=== PATIENT | male | born 1960 | race African-American/Black ===

== ENCOUNTER 2016-09-08 00:26 | Emergency (ER) | payer OTHER ==
[~2016-09-08] VITALS: Ht 188 cm; Wt 86.2 kg
[~2016-09-08 00:26] MED LIST: ALPRAZOLAM0.25 MG ORAL; ATIVAN0.5 MG ORAL; CARDIZEM CD360 MG PO; COUMADIN5 M1 IV; DIGOXIN125 MCG ORAL; LANOXIN250 MCG ORAL; MIRTAZAPINE15 M3 ORAL; NORCO 5-325 TA1 EACH ORAL; SEROQUEL100 MG ORAL; TOPROL XL100 MG ORAL; VICODIN 5-3001 EACH ORAL; XANAX0.25 MG ORAL; XANAX1 MG ORAL; ZYPREXA5 MG ORAL; [UNRECOGNIZED DRUG - OTHER]
[2016-09-08 00:30] VITALS: BP 150/84
[2016-09-08] MEDS ORDERED: ASPIRIN81 MG ORAL (00:39)
[2016-09-08] MEDS ORDERED: ALPRAZOLAM1 MG ORAL (00:39)
--- NOTE | 2016-09-08 00:44 | Emergency Room Report ---
History of Present Illness General Chief Complaint: Chest Pain Source: Patient Present Illness HPI 56YOM presents with left sided 9/10, non radiating chest pain. No assoc SOB, sweating, nausea/vomiting. Also c/o ankle pain s/p fx 1 year ago and recent hardware removal. Has norco at home but ran out. Requesting IV dilaudid or PO norco here. Per review of EMR, patient has multiple visits here for similar complaints of lower extremity pain and chest pain. As of recently as a few months ago, was ruled for [place] with negative troponins and EKG. ECHO showed normal EF 50-55%. No significant valve lesions on Doppler. Stress nuclear w/ inferior, fixed perfusion defect, suggestive of artifact. .Was advised by Cardiology to continue metoprolol, dig and Coumadin. Allergies: Coded Allergies: No Known Allergies (Verified , 11/08/11) Patient History Past Medical History: HTN Past Surgical History: other - previous ankle surgery Pertinent Family History: none Social History: Denies: alcohol use, drug use, smoking Immunizations: UTD Reviewed Nursing Documentation: PMH: Agreed, PSxH: Agreed Nursing Documentation-PMH Hx Cardiac Problems: Yes - Afib Hx Hypertension: Yes Hx Pacemaker: No Hx Asthma: No Hx COPD: No Hx Diabetes: No Hx Cancer: No Hx Gastrointestinal Problems: No Hx Dialysis: No History Of Psychiatric Problem: Yes - anxiety Hx Neurological Problems: No Hx Cerebrovascular Accident: No Hx Seizures: Yes Review of Systems All Other Systems: negative except mentioned in HPI Physical Exam Vital Signs Date Time Temp Pulse Resp B/P Pulse Ox O2 Delivery O2 Flow Rate FiO2 09/08/16 00:03 96.4 95 16 150/86 99 Room Air Sp02 EP Interpretation: reviewed, normal General Appearance: normal inspection, well appearing, no apparent distress, alert Head: atraumatic ENT: normal ENT inspection, hearing grossly normal, normal voice Neck: normal inspection, full range of motion, supple, no bony tend Respiratory: normal inspection, lungs clear, normal breath sounds, no respiratory distress, no retraction, no wheezing Cardiovascular #1: regular rate, rhythm, no edema Gastrointestinal: normal inspection, normal bowel sounds, non tender, soft, no guarding, no hernia Genitourinary: no CVA tenderness Musculoskeletal: normal inspection, back normal, normal range of motion, Brittany' s Sign negative Neurologic: normal inspection, alert, oriented x3, responsive, 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 VSS. Afebrile ECG shows known Afib, no RVR. Normotensive Has had extensive lab/ECHO/STRESS testing done here previously and it was unremarkable. Patient is likely narcotic seeking. There were specific requests for IV or PO nacrotics I gave IM toradol and PO T#3 for analgesia Patient requesting transfer to [facility] - was informed we do not do that Patient angrily left ER. Refused to sign DC papers. Didnt take Rx. EKG Diagnostic Results Rate: other - Atrial fib ST Segments: no acute changes ASA given to the pt in ED: No Chest X-Ray Diagnostic Results EP Interpretation: Yes Findings: no consolidation, no effusion, no pneumothorax, no acute cardiopulmonary disease Number of Views: 1 Last Vital Signs Date Time Temp Pulse Resp B/P Pulse Ox O2 Delivery O2 Flow Rate FiO2 09/08/16 00:03 96.4 95 16 150/86 99 Room Air Status: improved Disposition: HOME, SELF-CARE Scripts Acetaminophen With Codeine (T#3) (TYLENOL #3 TAB*) Y Tab 1 TAB ORAL Q8H Y for For Pain, #30 TAB Prov: CONNOR MOMIN M.D. 09/08/16 CONNOR MOMIN M.D. Sep 08, 2016 00:44
[2016-09-08] MEDS ORDERED: Tylenol #3 tab (300mg/30mg) ORAL ONE (01:00)
[2016-09-08] MEDS ORDERED: Ketorolac 60mg Inj IM ONE (01:00)
[2016-09-08] MEDS ORDERED: ACETAMINOPHEN-1 EAC1 ORAL (01:18)
[2016-09-08 01:36] VITALS: BP 143/80
--- NOTE | 2016-09-11 10:33 | Diagnostic Imaging Report ---
Indications: Chest pain Technique: Portable AP chest Findings: Comparison: None Cardiac silhouette remains partially obscured.. Pulmonary vasculature remains within normal limits. Inspiratory effort remains suboptimal. Visualized portions of lungs and pleura remain clear. IMPRESSION: No evidence of acute cardiopulmonary disease, limited as described, unchanged
== END 2016-09-08 01:38 | disposition home or self-care (01) ==
LOC: EDBD 00:26 → EMR 00:33
DX: R07.9 Chest pain, unspecified (principal); M25.579 Pain in unspecified ankle and joints of unspecified foot; G89.29 Other chronic pain; Z76.5 Malingerer [conscious simulation]; I10 Essential (primary) hypertension; F41.9 Anxiety disorder, unspecified; I48.91 Unspecified atrial fibrillation; Z79.01 Long term (current) use of anticoagulants
CPT/HCPCS: 71010; 93005; 96372; 99283

== ENCOUNTER 2017-09-30 12:06 | Inpatient (IN) | payer OTHER ==
[~2017-09-30] VITALS: Ht 172.7 cm; Wt 72.6 kg
[~2017-09-30 12:06] MED LIST changes: +ACETAMINOPHEN-1 EAC1 ORAL; +ALPRAZOLAM1 MG ORAL; +ASPIRIN81 MG ORAL; +Sodium Chloride 500ML 500 ML IV ONE
[2017-09-30] MEDS ORDERED: dilTIAZem HCl 25mg/5ml Inj IVP ONE ×2 (12:15→15:00)
[2017-09-30] MEDS ORDERED: Morphine Sulfate 4mg/ml Inj IVP ONE ×2 (12:15→15:00)
[2017-09-30] MEDS ORDERED: ATENOLOL25 MG ORAL (12:46)
[2017-09-30 12:54] LABS: BASOPHILS % (AUTO) 1.1 % (0.0-2.0); EOSINOPHILS % (AUTO) 0.1 % (0.0-3.0); HEMATOCRIT 46.1 % (42.0-52.0); HEMOGLOBIN 15.2 G/DL (14.2-18.0); LYMPHOCYTES % (AUTO) 18.2 % (20.0-45.0); MEAN CORPUSCULAR VOLUME 93 FL (80-99); MONOCYTES % (AUTO) 4.3 % (1.0-10.0); NEUTROPHILS % (AUTO) 76.3 % (45.0-75.0); PLATELET COUNT 422 K/UL (150-450); RED BLOOD COUNT 4.93 M/UL (4.70-6.10); RED CELL DISTRIBUTION WIDTH 12.5 % (11.6-14.8); WHITE BLOOD COUNT 13.6 K/UL (4.8-10.8)
[2017-09-30 13:09] VITALS: BP 148/76
[2017-09-30 13:26] LABS: ANION GAP 15 mmol/L (5-15); BLOOD UREA NITROGEN 14 mg/dL (7-18); CALCIUM 9.7 MG/DL (8.5-10.1); CARBON DIOXIDE 25 MMOL/L (21-32); CHLORIDE 104 MMOL/L (98-107); POTASSIUM 3.2 MMOL/L (3.5-5.1); SODIUM 144 MMOL/L (136-145)
[2017-09-30 13:39] LABS: ALANINE AMINOTRANSFERASE 11 U/L (12-78); ALBUMIN 4.4 G/DL (3.4-5.0); ALBUMIN/GLOBULIN RATIO 1.2 (1.0-2.7); ALKALINE PHOSPHATASE 102 U/L (46-116); ASPARTATE AMINO TRANSFERASE 15 U/L (15-37); BILIRUBIN,DIRECT 0.3 MG/DL (0.0-0.3); BILIRUBIN,TOTAL 1.3 MG/DL (0.2-1.0); CKMB 2.5 NG/ML (0.0-3.6); CREATINE KINASE 593 U/L (26-308)
--- NOTE | 2017-09-30 14:08 | Emergency Room Report ---
History of Present Illness General Chief Complaint: Chest Pain Source: Patient Present Illness HPI Patient presents with complaints of midsternal chest pain Ongoing for the past one day Denies any change of position or exertion Denies any vomiting or diarrhea Patient has had increased cough and mild congestion Pain is 4/10 midsternal heaviness Patient reports history of irregular heart rate takes atenolol Denies any pleurisy or calf pain Allergies: Coded Allergies: No Known Allergies (Verified , 11/08/11) Patient History Past Medical History: see triage record Pertinent Family History: none Reviewed Nursing Documentation: PMH: Agreed, PSxH: Agreed Nursing Documentation-PMH Past Medical History: No History, Except For Hx Cardiac Problems: Yes - [place] Hx Hypertension: Yes Hx Pacemaker: No Hx Asthma: No Hx COPD: No Hx Diabetes: No Hx Cancer: No Hx Gastrointestinal Problems: No Hx Dialysis: No Hx Neurological Problems: No Hx Cerebrovascular Accident: Yes Hx Seizures: Yes Review of Systems All Other Systems: negative except mentioned in HPI Physical Exam Vital Signs Date Time Temp Pulse Resp B/P (MAP) Pulse Ox O2 Delivery O2 Flow Rate FiO2 09/30/17 11:52 98.1 140 18 144/88 98 Room Air Sp02 EP Interpretation: reviewed, normal General Appearance: well appearing, no apparent distress Head: normocephalic, atraumatic Eyes: bilateral eye PERRL, bilateral eye EOMI ENT: hearing grossly normal, normal pharynx, TMs + canals normal, uvula midline Neck: full range of motion, supple, no meningismus, no bony tend Respiratory: lungs clear, normal breath sounds, no rhonchi, no respiratory distress, no retraction, no accessory muscle use Cardiovascular #1: no edema, no gallop, no JVD, no murmur, tachycardia, irregularly irregular Gastrointestinal: normal bowel sounds, non tender, soft, no mass, no organomegaly, non-distended, no guarding, no hernia, no pulsatile mass, no rebound Genitourinary: no CVA tenderness Musculoskeletal: normal inspection Neurologic: oriented x3, responsive, singing waiter or waitress III-XII nml as tested, motor strength/ tone normal, sensory intact Psychiatric: mood/affect normal Skin: normal color, no rash, warm/dry, palpation normal Lymphatic: normal inspection, no adenopathy Medical Decision Making Diagnostic Impression: Primary Impression: ACS (acute coronary syndrome) Additional Impression: Atrial fibrillation ER Course Patient is a fairly complex patient with multiple differential to consideration including but not limited to cardiac cardiopulmonary and vascular emergencies Patient's total CK is mildly elevated X-ray and other troponin are otherwise negative Patient received pain medication aspirin has done better at this time given the comorbidities and clinical history admitted for further care Labs Test 09/30/17 12:30 White Blood Count 13.6 K/UL (4.8-10.8) Red Blood Count 4.93 M/UL (4.70-6.10) Hemoglobin 15.2 G/DL (14.2-18.0) Hematocrit 46.1 % (42.0-52.0) Mean Corpuscular Volume 93 FL (80-99) Mean Corpuscular Hemoglobin 30.9 PG (27.0-31.0) Mean Corpuscular Hemoglobin Concent 33.1 G/DL (32.0-36.0) Red Cell Distribution Width 12.5 % (11.6-14.8) Platelet Count 422 K/UL (150-450) Mean Platelet Volume 5.6 FL (6.5-10.1) Neutrophils (%) (Auto) 76.3 % (45.0-75.0) Lymphocytes (%) (Auto) 18.2 % (20.0-45.0) Monocytes (%) (Auto) 4.3 % (1.0-10.0) Eosinophils (%) (Auto) 0.1 % (0.0-3.0) Basophils (%) (Auto) 1.1 % (0.0-2.0) Sodium Level 144 MMOL/L (136-145) Potassium Level 3.2 MMOL/L (3.5-5.1) Chloride Level 104 MMOL/L (98-107) Carbon Dioxide Level 25 MMOL/L (21-32) Anion Gap 15 mmol/L (5-15) Blood Urea Nitrogen 14 mg/dL (7-18) Creatinine 1.0 MG/DL (0.55-1.30) Estimat Glomerular Filtration Rate > 60 mL/min (>60) Glucose Level 94 MG/DL (74-106) Calcium Level 9.7 MG/DL (8.5-10.1) Total Bilirubin 1.3 MG/DL (0.2-1.0) Direct Bilirubin 0.3 MG/DL (0.0-0.3) Aspartate Amino Transf (AST/SGOT) 15 U/L (15-37) Alanine Aminotransferase (ALT/SGPT) 11 U/L (12-78) Alkaline Phosphatase 102 U/L (46-116) Total Creatine Kinase 593 U/L (26-308) Creatine Kinase MB 2.5 NG/ML (0.0-3.6) Creatine Kinase MB Relative Index 0.4 Troponin I 0.000 ng/mL (0.000-0.056) Pro-B-Type Natriuretic Peptide 346 pg/mL (0-125) Total Protein 8.1 G/DL (6.4-8.2) Albumin 4.4 G/DL (3.4-5.0) Globulin 3.7 g/dL Albumin/Globulin Ratio 1.2 (1.0-2.7) Lipase 196 U/L (73-393) EKG Diagnostic Results Rate: tachycardiac Rhythm: other - A. fib ST Segments: other - Nonspecific ST T-wave changes Rhythm Strip Diag. Results EP Interpretation: yes Rate: 112 Rhythm: no PVC's, no ectopy, other - atrial fib Chest X-Ray Diagnostic Results Chest X-Ray Diagnostic Results : Chest X-Ray Ordered: Yes # of Views/Limited/Complete: 1 View Indication: Chest Pain EP Interpretation: Yes Interpretation: no consolidation, no effusion, no pneumothorax, other - cardiomegaly LLL hazziness Impression: No acute disease Electronically Signed by: Karolina Zelaya DO Last Vital Signs Date Time Temp Pulse Resp B/P (MAP) Pulse Ox O2 Delivery O2 Flow Rate FiO2 09/30/17 13:51 98.0 09/30/17 13:09 128 18 148/76 100 Room Air Status: improved Disposition: ADMITTED INPATIENT Condition: Serious Referrals: NON PHYSICIAN (PCP) KAROLINA ZELAYA D.O. Sep 30, 2017 14:08
[2017-09-30 16:00] VITALS: BP 150/106
--- NOTE | 2017-09-30 16:27 | Cardiology Progress Note ---
Assessment/Plan Assessment/Plan [id number] Objective Last 24 Hour Vital Signs Date Time Temp Pulse Resp B/P (MAP) Pulse Ox O2 Delivery O2 Flow Rate FiO2 09/30/17 15:51 121 18 09/30/17 15:51 118/77 09/30/17 15:13 152 103/89 09/30/17 13:51 98.0 09/30/17 13:09 98.0 128 18 148/76 100 Room Air 09/30/17 12:15 121 136/106 09/30/17 11:52 98.1 140 18 144/88 98 Room Air Laboratory Tests Test 09/30/17 12:30 White Blood Count 13.6 K/UL (4.8-10.8) H Red Blood Count 4.93 M/UL (4.70-6.10) Hemoglobin 15.2 G/DL (14.2-18.0) Hematocrit 46.1 % (42.0-52.0) Mean Corpuscular Volume 93 FL (80-99) Mean Corpuscular Hemoglobin 30.9 PG (27.0-31.0) Mean Corpuscular Hemoglobin Concent 33.1 G/DL (32.0-36.0) Red Cell Distribution Width 12.5 % (11.6-14.8) Platelet Count 422 K/UL (150-450) Mean Platelet Volume 5.6 FL (6.5-10.1) L Neutrophils (%) (Auto) 76.3 % (45.0-75.0) H Lymphocytes (%) (Auto) 18.2 % (20.0-45.0) L Monocytes (%) (Auto) 4.3 % (1.0-10.0) Eosinophils (%) (Auto) 0.1 % (0.0-3.0) Basophils (%) (Auto) 1.1 % (0.0-2.0) Sodium Level 144 MMOL/L (136-145) Potassium Level 3.2 MMOL/L (3.5-5.1) L Chloride Level 104 MMOL/L (98-107) Carbon Dioxide Level 25 MMOL/L (21-32) Anion Gap 15 mmol/L (5-15) Blood Urea Nitrogen 14 mg/dL (7-18) Creatinine 1.0 MG/DL (0.55-1.30) Estimat Glomerular Filtration Rate > 60 mL/min (>60) Glucose Level 94 MG/DL (74-106) Calcium Level 9.7 MG/DL (8.5-10.1) Total Bilirubin 1.3 MG/DL (0.2-1.0) H Direct Bilirubin 0.3 MG/DL (0.0-0.3) Aspartate Amino Transf (AST/SGOT) 15 U/L (15-37) Alanine Aminotransferase (ALT/SGPT) 11 U/L (12-78) L Alkaline Phosphatase 102 U/L (46-116) Total Creatine Kinase 593 U/L (26-308) H Creatine Kinase MB 2.5 NG/ML (0.0-3.6) Creatine Kinase MB Relative Index 0.4 Troponin I 0.000 ng/mL (0.000-0.056) Pro-B-Type Natriuretic Peptide 346 pg/mL (0-125) H Total Protein 8.1 G/DL (6.4-8.2) Albumin 4.4 G/DL (3.4-5.0) Globulin 3.7 g/dL Albumin/Globulin Ratio 1.2 (1.0-2.7) Lipase 196 U/L (73-393) GIAN BOYD Sep 30, 2017 16:27
[2017-09-30] MEDS ORDERED: Metoprolol 5mg/5ml Inj IVP PRN (16:30)
[2017-09-30] MEDS: dilTIAZem HCl 60mg tab ORAL SCH ×2 (17:53→22:09)
--- NOTE | 2017-09-30 19:46 | History and Physical ---
History of Present Illness General Date patient seen: Sep 30, 2017 Reason for Hospitalization: Chest Pain Present Illness HPI 57 year old male with hx of A-fib, psychosis presented to ER with complaints of midsternal chest pain. Pt was in rapid afib and is admitted to telemetry. Allergies: Coded Allergies: No Known Allergies (Verified , 11/08/11) Medication History Scheduled Alprazolam* (Xanax*), 2 MG ORAL TID, (Reported) Aspirin* (Aspirin*), 81 MG ORAL DAILY, (Reported) Atenolol* (Tenormin*), 25 MG ORAL BID, (Reported) Digoxin* (Digoxin*), 125 MCG ORAL DAILY, (Reported) Diltiazem Hcl (Cardizem Cd), 360 MG PO DAILY Lorazepam* (Ativan*), 0.5 MG ORAL THREE TIMES A DAY Metoprolol Succinate* (Toprol Xl*), 100 MG ORAL DAILY Mirtazapine* (Mirtazapine*), 7.5 MG ORAL BEDTIME Olanzapine* (Zyprexa*), 10 MG ORAL BEDTIME Quetiapine Fumarate* (Seroquel*), 50 MG ORAL Q8HR Warfarin Sod (Coumadin), 2 MG IV DAILY Scheduled PRN Acetaminophen With Codeine (T#3) (Tylenol #3 Tab*), 1 TAB ORAL Q8H PRN for For Pain Alprazolam* (Xanax*), 0.25 MG ORAL TID PRN for For Anxiety Alprazolam* (Xanax*), 1 TAB ORAL TID PRN for For Anxiety Hydrocodone Bit/Acetaminophen 5-325* (Henderson 5-325*), 1 TAB ORAL Q6H PRN for For Pain Hydrocodone Bit/Acetaminophen 5-325* (Henderson 5-325*), 1 TAB ORAL Q4H PRN for For Pain Miscellaneous Medications [Qualitest], (Reported) Patient History Healthcare decision maker N Resuscitation status Full Code Advanced Directive on File No Past Medical/Surgical History Past Medical/Surgical History: (1) HIV disease (2) Atrial fibrillation (3) Drug abuse (4) Non-compliance (5) HTN (hypertension) (6) Psychosis Review of Systems Cardiovascular: Reports: chest pain, palpitations Physical Exam General Appearance: cachetic Lines, tubes and drains: peripheral HEENT: normocephalic, atraumatic Neck: non-tender, normal alignment Respiratory/Chest: chest wall non-tender, lungs clear Breasts: no masses Cardiovascular/Chest: normal peripheral pulses Abdomen: normal bowel sounds Last 24 Hour Vital Signs Date Time Temp Pulse Resp B/P (MAP) Pulse Ox O2 Delivery O2 Flow Rate FiO2 09/30/17 17:53 72 150/106 09/30/17 16:28 111 09/30/17 16:00 98.1 72 20 150/106 98 Room Air 09/30/17 15:13 152 103/89 09/30/17 13:51 98.0 09/30/17 13:09 98.0 128 18 148/76 100 Room Air 09/30/17 12:15 121 136/106 09/30/17 11:52 98.1 140 18 144/88 98 Room Air Laboratory Tests Test 09/30/17 12:30 White Blood Count 13.6 K/UL (4.8-10.8) H Red Blood Count 4.93 M/UL (4.70-6.10) Hemoglobin 15.2 G/DL (14.2-18.0) Hematocrit 46.1 % (42.0-52.0) Mean Corpuscular Volume 93 FL (80-99) Mean Corpuscular Hemoglobin 30.9 PG (27.0-31.0) Mean Corpuscular Hemoglobin Concent 33.1 G/DL (32.0-36.0) Red Cell Distribution Width 12.5 % (11.6-14.8) Platelet Count 422 K/UL (150-450) Mean Platelet Volume 5.6 FL (6.5-10.1) L Neutrophils (%) (Auto) 76.3 % (45.0-75.0) H Lymphocytes (%) (Auto) 18.2 % (20.0-45.0) L Monocytes (%) (Auto) 4.3 % (1.0-10.0) Eosinophils (%) (Auto) 0.1 % (0.0-3.0) Basophils (%) (Auto) 1.1 % (0.0-2.0) Sodium Level 144 MMOL/L (136-145) Potassium Level 3.2 MMOL/L (3.5-5.1) L Chloride Level 104 MMOL/L (98-107) Carbon Dioxide Level 25 MMOL/L (21-32) Anion Gap 15 mmol/L (5-15) Blood Urea Nitrogen 14 mg/dL (7-18) Creatinine 1.0 MG/DL (0.55-1.30) Estimat Glomerular Filtration Rate > 60 mL/min (>60) Glucose Level 94 MG/DL (74-106) Calcium Level 9.7 MG/DL (8.5-10.1) Total Bilirubin 1.3 MG/DL (0.2-1.0) H Direct Bilirubin 0.3 MG/DL (0.0-0.3) Aspartate Amino Transf (AST/SGOT) 15 U/L (15-37) Alanine Aminotransferase (ALT/SGPT) 11 U/L (12-78) L Alkaline Phosphatase 102 U/L (46-116) Total Creatine Kinase 593 U/L (26-308) H Creatine Kinase MB 2.5 NG/ML (0.0-3.6) Creatine Kinase MB Relative Index 0.4 Troponin I 0.000 ng/mL (0.000-0.056) Pro-B-Type Natriuretic Peptide 346 pg/mL (0-125) H Total Protein 8.1 G/DL (6.4-8.2) Albumin 4.4 G/DL (3.4-5.0) Globulin 3.7 g/dL Albumin/Globulin Ratio 1.2 (1.0-2.7) Lipase 196 U/L (73-393) Height (Feet): 5 Height (Inches): 8.00 Weight (Pounds): 160 Medications Current Medications Medications (Trade) Dose Ordered Sig/Benedicto Route PRN Reason Start Time Stop Time Status Last Admin Dose Admin Acetaminophen/ Hydrocodone Bitart (Henderson 5/325) 1 tab Q4H PRN ORAL Moderate Pain (Pain Scale 4-6) 09/30/17 15:15 10/07/17 15:14 Alprazolam (Xanax) 0.25 mg Q8H PRN ORAL For Anxiety 09/30/17 15:15 10/07/17 15:14 Atenolol (Tenormin) 25 mg Q12HR ORAL 09/30/17 21:00 10/30/17 20:59 Digoxin (Lanoxin) 0.125 mg DAILY ORAL 1/28/18 09:00 10/31/17 08:59 Diltiazem HCl (Cardizem) 60 mg EVERY 8 HOURS ORAL 09/30/17 16:30 10/30/17 16:29 09/30/17 17:53 Metoprolol Tartrate (Lopressor) 5 mg Q6H PRN IVP hr greater than 125 09/30/17 16:30 10/30/17 16:29 Mirtazapine (Remeron) 7.5 mg BEDTIME ORAL 09/30/17 21:00 10/30/17 20:59 Olanzapine (ZyPREXA) 10 mg BEDTIME ORAL 09/30/17 21:00 10/30/17 20:59 Quetiapine Fumarate (SEROquel) 50 mg Q8HR ORAL 09/30/17 22:00 10/30/17 21:59 Assessment/Plan Problem List: (1) ACS (acute coronary syndrome) ICD Codes: I24.9 - Acute ischemic heart disease, unspecified SNOMED: 127990350 (2) Atrial fibrillation with RVR (3) Non-compliance ICD Codes: Z91.19 - Patient's noncompliance with other medical treatment and regimen SNOMED: 8051133 (4) Psychosis ICD Codes: F29 - Unsp psychosis not due to a substance or known physiol cond SNOMED: 44765091 Assessment/Plan telemetry monitoring control heart rate adjust cardiac meds psych to see. POOL LANDA Sep 30, 2017 19:46
[2017-09-30 20:00] VITALS: BP 121/82
[2017-09-30] MEDS: Atenolol 25mg tab ORAL SCH (22:09)
[2017-09-30] MEDS: Heparin 5000 units/ml inj SUBQ SCH (22:11)
[2017-09-30] MEDS: ALPRAZolam 0.25mg tab ORAL PRN (22:24)
[2017-10-01] VITALS: BP 137/88
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
[2017-10-01 03:54] VITALS: BP 126/85
[2017-10-01] MEDS: dilTIAZem HCl 60mg tab ORAL SCH ×3 (05:38→17:15)
[2017-10-01] MEDS: ALPRAZolam 0.25mg tab ORAL PRN ×2 (05:39→21:25)
[2017-10-01 08:00] VITALS: BP 144/82
[2017-10-01] MEDS ORDERED: LORazepam Inj 2mg/ml 1ml IV PRN (08:00)
[2017-10-01 08:06] LABS: ALANINE AMINOTRANSFERASE 9 U/L (12-78); ALBUMIN 3.9 G/DL (3.4-5.0); ALBUMIN/GLOBULIN RATIO 1.1 (1.0-2.7); ALKALINE PHOSPHATASE 94 U/L (46-116); ANION GAP 13 mmol/L (5-15); ASPARTATE AMINO TRANSFERASE 19 U/L (15-37); BLOOD UREA NITROGEN 12 mg/dL (7-18); CALCIUM 9.3 MG/DL (8.5-10.1); CARBON DIOXIDE 21 MMOL/L (21-32); CHLORIDE 103 MMOL/L (98-107); CHOLESTEROL 153 MG/DL (< 200); HDL CHOLESTEROL 40 MG/DL (40-60); POTASSIUM 3.8 MMOL/L (3.5-5.1); SODIUM 137 MMOL/L (136-145); TRIGLYCERIDES 67 MG/DL (30-150)
[2017-10-01] MEDS: Atenolol 25mg tab ORAL SCH ×2 (08:08→21:14)
[2017-10-01] MEDS: Digoxin 0.125mg tab ORAL SCH (08:08)
[2017-10-01] MEDS: Heparin 5000 units/ml inj SUBQ SCH ×2 (08:08→21:15)
--- NOTE | 2017-10-01 08:27 | Diagnostic Imaging Report ---
Indication: Pain Technique: XRAY Chest 1v Comparison: 09/08/2016 Findings: Heart size and mediastinal contours are within normal limits given technique. There is no focal consolidation, pneumothorax or pleural effusion. Osseous structures demonstrate no acute abnormality. Impression: No radiographic evidence of acute cardiopulmonary disease.
[2017-10-01 08:38] LABS: BASOPHILS % (AUTO) 1.3 % (0.0-2.0); EOSINOPHILS % (AUTO) 0.6 % (0.0-3.0); HEMATOCRIT 43.4 % (42.0-52.0); HEMOGLOBIN 13.9 G/DL (14.2-18.0); LYMPHOCYTES % (AUTO) 30.4 % (20.0-45.0); MEAN CORPUSCULAR VOLUME 93 FL (80-99); MONOCYTES % (AUTO) 6.6 % (1.0-10.0); PLATELET COUNT 410 K/UL (150-450); RED BLOOD COUNT 4.66 M/UL (4.70-6.10); RED CELL DISTRIBUTION WIDTH 12.6 % (11.6-14.8); WHITE BLOOD COUNT 11.7 K/UL (4.8-10.8)
[2017-10-01] MEDS ORDERED: Metoprolol Succinate XL 100mg tab ORAL SCH (09:00)
--- NOTE | 2017-10-01 09:14 | Pulmonology Progress Note ---
Assessment/Plan Problems: (1) ACS (acute coronary syndrome) (2) Atrial fibrillation with RVR (3) Non-compliance (4) Psychosis Assessment/Plan agitated, haldol, ativan, bendary psych evaluation. took off the monitor, Subjective ROS Limited/Unobtainable: No Constitutional: Reports: no symptoms HEENT: Repors: no symptoms Respiratory: Reports: no symptoms Allergies: Coded Allergies: No Known Allergies (Verified , 11/08/11) Objective Last 24 Hour Vital Signs Date Time Temp Pulse Resp B/P (MAP) Pulse Ox O2 Delivery O2 Flow Rate FiO2 10/01/17 08:08 120 10/01/17 08:08 120 145/82 10/01/17 05:38 136 126/85 10/01/17 04:00 136 10/01/17 03:54 97.0 115 20 126/85 97 10/01/17 00:00 98.0 122 20 137/88 100 10/01/17 00:00 134 09/30/17 22:09 78 121/82 09/30/17 22:09 78 121/82 09/30/17 20:00 97.0 78 18 121/82 99 09/30/17 20:00 130 09/30/17 17:53 72 150/106 09/30/17 16:28 111 09/30/17 16:00 98.1 72 20 150/106 98 Room Air 09/30/17 15:13 152 103/89 09/30/17 13:51 98.0 09/30/17 13:09 98.0 128 18 148/76 100 Room Air 09/30/17 12:15 121 136/106 09/30/17 11:52 98.1 140 18 144/88 98 Room Air Intake and Output 09/30/17 10/01/17 19:00 07:00 Intake Total 400 ml 720 ml Output Total 400 ml 720 ml Balance 0 ml 0 ml Intake Oral 400 ml 720 ml Output Urine Total 400 ml 720 ml # Voids 1 2 General Appearance: cachetic HEENT: normocephalic, atraumatic, PERRL Respiratory/Chest: chest wall non-tender, lungs clear Cardiovascular: normal peripheral pulses, normal rate Abdomen: normal bowel sounds Extremities: no cyanosis 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 Laboratory Tests 09/30/17 12:30: White Blood Count 13.6H, Red Blood Count 4.93, Hemoglobin 15.2, Hematocrit 46.1 , Mean Corpuscular Volume 93, Mean Corpuscular Hemoglobin 30.9, Mean Corpuscular Hemoglobin Concent 33.1, Red Cell Distribution Width 12.5, Platelet Count 422, Mean Platelet Volume 5.6L, Neutrophils (%) (Auto) 76.3H, Lymphocytes (%) (Auto) 18.2L, Monocytes (%) (Auto) 4.3, Eosinophils (%) (Auto) 0.1, Basophils (%) (Auto) 1.1, Sodium Level 144, Potassium Level 3.2L, Chloride Level 104, Carbon Dioxide Level 25, Anion Gap 15, Blood Urea Nitrogen 14, Creatinine 1.0, Estimat Glomerular Filtration Rate > 60, Glucose Level 94, Calcium Level 9.7, Total Bilirubin 1.3H, Direct Bilirubin 0.3, Aspartate Amino Transf (AST/SGOT) 15, Alanine Aminotransferase (ALT/SGPT) 11L, Alkaline Phosphatase 102, Total Creatine Kinase 593H, Creatine Kinase MB 2.5, Creatine Kinase MB Relative Index 0.4, Troponin I 0.000, Pro-B-Type Natriuretic Peptide 346H, Total Protein 8.1, Albumin 4.4, Globulin 3.7, Albumin/Globulin Ratio 1.2, Lipase 196 10/01/17 05:00: Sodium Level 137, Potassium Level 3.8, Chloride Level 103, Carbon Dioxide Level 21, Anion Gap 13, Blood Urea Nitrogen 12, Creatinine 1.0, Estimat Glomerular Filtration Rate > 60, Glucose Level 97, Calcium Level 9.3, Total Bilirubin 1.0, Aspartate Amino Transf (AST/SGOT) 19, Alanine Aminotransferase (ALT/SGPT) 9L, Alkaline Phosphatase 94, Troponin I 0.005, Pro-B-Type Natriuretic Peptide 344H, Total Protein 7.5, Albumin 3.9, Globulin 3.6, Albumin/Globulin Ratio 1.1, Triglycerides Level 67, Cholesterol Level 153, LDL Cholesterol 102H, HDL Cholesterol 40, Cholesterol/HDL Ratio 3.8, Thyroid Stimulating Hormone (TSH) 0.150L 10/01/17 08:20: White Blood Count 11.7H, Red Blood Count 4.66L, Hemoglobin 13.9L, Hematocrit 43.4, Mean Corpuscular Volume 93, Mean Corpuscular Hemoglobin 29.8, Mean Corpuscular Hemoglobin Concent 32.0, Red Cell Distribution Width 12.6, Platelet Count 410, Mean Platelet Volume 5.7L, Neutrophils (%) (Auto) 61.0, Lymphocytes ( %) (Auto) 30.4, Monocytes (%) (Auto) 6.6, Eosinophils (%) (Auto) 0.6, Basophils (%) (Auto) 1.3 Current Medications Medications (Trade) Dose Ordered Sig/Benedicto Route PRN Reason Start Time Stop Time Status Last Admin Dose Admin Acetaminophen/ Hydrocodone Bitart ([place] 5/325) 1 tab Q4H PRN ORAL Moderate Pain (Pain Scale 4-6) 09/30/17 15:15 10/07/17 15:14 Alprazolam (Xanax) 0.25 mg Q8H PRN ORAL For Anxiety 09/30/17 15:15 10/07/17 15:14 10/01/17 05:39 Atenolol (Tenormin) 25 mg Q12HR ORAL 09/30/17 21:00 10/30/17 20:59 10/01/17 08:08 Digoxin (Lanoxin) 0.125 mg DAILY ORAL 10/01/17 09:00 10/31/17 08:59 10/01/17 08:08 Diltiazem HCl (Cardizem) 60 mg EVERY 8 HOURS ORAL 09/30/17 16:30 10/30/17 16:29 10/01/17 05:38 Diphenhydramine HCl (Benadryl) 50 mg ONCE ONCE IM 10/01/17 09:15 10/01/17 09:16 Haloperidol Lactate (Haldol) 5 mg Q6H PRN IM Agitation 10/01/17 09:00 10/31/17 08:59 Haloperidol Lactate (Haldol) 10 mg ONCE ONCE IM 10/01/17 09:15 10/01/17 09:16 Heparin Sodium (Porcine) (Heparin 5000 units/ml) 5,000 units EVERY 12 HOURS SUBQ 09/30/17 21:00 10/30/17 20:59 09/30/17 22:11 Lorazepam (Ativan 2mg/ml 1ml) 0.5 mg Q4H PRN IV For Anxiety 10/01/17 08:00 10/08/17 07:59 Lorazepam (Ativan 2mg/ml 1ml) 2 mg ONCE ONCE IM 10/01/17 09:15 10/01/17 09:16 Metoprolol Tartrate (Lopressor) 5 mg Q6H PRN IVP hr greater than 125 09/30/17 16:30 10/30/17 16:29 Mirtazapine (Remeron) 7.5 mg BEDTIME ORAL 09/30/17 21:00 10/30/17 20:59 09/30/17 22:08 Olanzapine (ZyPREXA) 10 mg BEDTIME ORAL 09/30/17 21:00 10/30/17 20:59 09/30/17 22:09 Quetiapine Fumarate (SEROquel) 50 mg Q8HR ORAL 09/30/17 22:00 10/30/17 21:59 10/01/17 05:39 POOL LANDA Oct 01, 2017 09:13
[2017-10-01] MEDS ORDERED: DiphenhydrAMINE 50mg/ml Inj IM ONE (09:15)
[2017-10-01] MEDS ORDERED: Haloperidol 5mg/ml Inj IM ONE (09:15)
[2017-10-01] MEDS ORDERED: LORazepam Inj 2mg/ml 1ml IM ONE (09:15)
[2017-10-01 12:00] VITALS: BP 144/107
--- NOTE | 2017-10-01 14:40 | Cardiology Progress Note ---
Assessment/Plan Assessment/Plan z1. Atrial fibrillation appears to be chronic, not sure whether it is chronic recurrent or permanent. 2. History of substance abuse. 3. History of psychosis and agitation. hr is better controlled labs ntoed tele personally reviewed tsh lwo will need to exclud hyperthyroids bb and dilt of hr control increase dilt await echo Subjective ROS Limited/Unobtainable: Yes Subjective agitated indicates hurts all over. 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 Last 24 Hour Vital Signs Date Time Temp Pulse Resp B/P (MAP) Pulse Ox O2 Delivery O2 Flow Rate FiO2 10/01/17 13:53 88 122/86 10/01/17 08:08 120 10/01/17 08:08 120 145/82 10/01/17 08:00 120 10/01/17 08:00 97.5 102 20 144/82 97 Room Air 10/01/17 05:38 136 126/85 10/01/17 04:00 136 10/01/17 03:54 97.0 115 20 126/85 97 10/01/17 00:00 98.0 122 20 137/88 100 10/01/17 00:00 134 09/30/17 22:09 78 121/82 09/30/17 22:09 78 121/82 09/30/17 20:00 97.0 78 18 121/82 99 09/30/17 20:00 130 09/30/17 17:53 72 150/106 09/30/17 16:28 111 09/30/17 16:00 98.1 72 20 150/106 98 Room Air 09/30/17 15:13 152 103/89 General Appearance: agitated Cardiovascular: irregularly irregular Respiratory/Chest: lungs clear, normal breath sounds Abdomen: normal bowel sounds, non tender, soft Extremities: no swelling Intake and Output 09/30/17 10/01/17 19:00 07:00 Intake Total 400 ml 720 ml Output Total 400 ml 720 ml Balance 0 ml 0 ml Intake Oral 400 ml 720 ml Output Urine Total 400 ml 720 ml # Voids 1 2 Laboratory Tests Test 10/01/17 05:00 10/01/17 08:20 Sodium Level 137 MMOL/L (136-145) Potassium Level 3.8 MMOL/L (3.5-5.1) Chloride Level 103 MMOL/L (98-107) Carbon Dioxide Level 21 MMOL/L (21-32) Anion Gap 13 mmol/L (5-15) Blood Urea Nitrogen 12 mg/dL (7-18) Creatinine 1.0 MG/DL (0.55-1.30) Estimat Glomerular Filtration Rate > 60 mL/min (>60) Glucose Level 97 MG/DL (74-106) Calcium Level 9.3 MG/DL (8.5-10.1) Total Bilirubin 1.0 MG/DL (0.2-1.0) Aspartate Amino Transf (AST/SGOT) 19 U/L (15-37) Alanine Aminotransferase (ALT/SGPT) 9 U/L (12-78) L Alkaline Phosphatase 94 U/L (46-116) Troponin I 0.005 ng/mL (0.000-0.056) Pro-B-Type Natriuretic Peptide 344 pg/mL (0-125) H Total Protein 7.5 G/DL (6.4-8.2) Albumin 3.9 G/DL (3.4-5.0) Globulin 3.6 g/dL Albumin/Globulin Ratio 1.1 (1.0-2.7) Triglycerides Level 67 MG/DL (30-150) Cholesterol Level 153 MG/DL (< 200) LDL Cholesterol 102 mg/dL (<100) H HDL Cholesterol 40 MG/DL (40-60) Cholesterol/HDL Ratio 3.8 (3.3-4.4) Thyroid Stimulating Hormone (TSH) 0.150 uiU/mL (0.358-3.740) White Blood Count 11.7 K/UL (4.8-10.8) H Red Blood Count 4.66 M/UL (4.70-6.10) L Hemoglobin 13.9 G/DL (14.2-18.0) L Hematocrit 43.4 % (42.0-52.0) Mean Corpuscular Volume 93 FL (80-99) Mean Corpuscular Hemoglobin 29.8 PG (27.0-31.0) Mean Corpuscular Hemoglobin Concent 32.0 G/DL (32.0-36.0) Red Cell Distribution Width 12.6 % (11.6-14.8) Platelet Count 410 K/UL (150-450) Mean Platelet Volume 5.7 FL (6.5-10.1) L Neutrophils (%) (Auto) 61.0 % (45.0-75.0) Lymphocytes (%) (Auto) 30.4 % (20.0-45.0) Monocytes (%) (Auto) 6.6 % (1.0-10.0) Eosinophils (%) (Auto) 0.6 % (0.0-3.0) Basophils (%) (Auto) 1.3 % (0.0-2.0) GIAN BOYD Oct 01, 2017 14:40
[2017-10-01 16:00] VITALS: BP 129/76
[2017-10-01 20:00] VITALS: BP_SYST 126; BP_SYST 129; BP_DIAS 74; BP_DIAS 76
[2017-10-01] MEDS: Norco 5mg/325mg tab ORAL PRN (21:25)
[2017-10-01] MEDS: Haloperidol 5mg/ml Inj IM PRN (21:35)
[2017-10-02 00:09] VITALS: BP 129/76
[2017-10-02] MEDS: dilTIAZem HCl 60mg tab ORAL SCH ×4 (07:44→17:02)
[2017-10-02 08:00] VITALS: BP 113/62
[2017-10-02] MEDS: Digoxin 0.125mg tab ORAL SCH (08:14)
[2017-10-02] MEDS: Heparin 5000 units/ml inj SUBQ SCH ×2 (08:15→21:01)
[2017-10-02] MEDS: Atenolol 25mg tab ORAL SCH ×2 (08:15→21:00)
[2017-10-02] MEDS: Haloperidol 5mg/ml Inj IM PRN (11:50)
[2017-10-02 12:00] VITALS: BP 116/68
[2017-10-02] MEDS: Norco 5mg/325mg tab ORAL PRN ×2 (12:03→22:44)
--- NOTE | 2017-10-02 13:41 | Pulmonology Progress Note ---
Assessment/Plan Problems: (1) ACS (acute coronary syndrome) (2) Atrial fibrillation with RVR (3) Non-compliance (4) Psychosis Assessment/Plan agitated, haldol, ativan, bendary psych evaluation. d/w dr Bertrand heart rate still high f/u cardio recommendations Subjective ROS Limited/Unobtainable: No Constitutional: Reports: no symptoms Allergies: Coded Allergies: No Known Allergies (Verified , 11/08/11) Objective Last 24 Hour Vital Signs Date Time Temp Pulse Resp B/P (MAP) Pulse Ox O2 Delivery O2 Flow Rate FiO2 10/02/17 12:00 97.9 95 20 116/68 96 Room Air 10/02/17 11:50 105 125/76 10/02/17 08:15 95 112/76 10/02/17 08:14 95 10/02/17 08:00 97.2 99 20 113/62 97 Room Air 10/02/17 08:00 83 10/02/17 07:44 95 129/76 10/02/17 04:00 95 10/02/17 00:09 98.7 88 24 129/76 100 10/02/17 00:00 87 10/01/17 21:14 95 138/96 10/01/17 20:00 65 10/01/17 20:00 98.7 89 20 126/74 10/01/17 20:00 97.7 86 18 129/76 97 Room Air 10/01/17 17:15 86 129/76 10/01/17 16:00 97.7 86 18 129/76 97 10/01/17 16:00 86 10/01/17 13:53 88 122/86 Intake and Output 10/01/17 10/02/17 19:00 07:00 Intake Total 920 ml Output Total 600 ml Balance 920 ml -600 ml Intake Oral 920 ml Output Urine Total 600 ml # Voids 3 General Appearance: WD/WN HEENT: normocephalic Respiratory/Chest: chest wall non-tender, lungs clear Cardiovascular: normal peripheral pulses, normal rate Abdomen: normal bowel sounds, soft, non tender Extremities: no cyanosis 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 Current Medications Medications (Trade) Dose Ordered Sig/Benedicto Route PRN Reason Start Time Stop Time Status Last Admin Dose Admin Acetaminophen/ Hydrocodone Bitart ([place] 5/325) 1 tab Q4H PRN ORAL Moderate Pain (Pain Scale 4-6) 09/30/17 15:15 10/07/17 15:14 10/02/17 12:03 Alprazolam (Xanax) 0.25 mg Q8H PRN ORAL For Anxiety 09/30/17 15:15 10/07/17 15:14 10/01/17 21:25 Atenolol (Tenormin) 25 mg Q12HR ORAL 09/30/17 21:00 10/30/17 20:59 10/02/17 08:15 Digoxin (Lanoxin) 0.125 mg DAILY ORAL 10/01/17 09:00 10/31/17 08:59 10/02/17 08:14 Diltiazem HCl (Cardizem) 60 mg Q6HR ORAL 10/01/17 18:00 10/30/17 16:29 10/02/17 11:50 Divalproex Sodium (Depakote) 500 mg TID ORAL 10/02/17 13:00 11/01/17 12:59 Haloperidol Lactate (Haldol) 5 mg Q6H PRN IM Agitation 10/01/17 09:00 10/31/17 08:59 10/02/17 11:50 Heparin Sodium (Porcine) (Heparin 5000 units/ml) 5,000 units EVERY 12 HOURS SUBQ 09/30/17 21:00 10/30/17 20:59 10/01/17 21:15 Lorazepam (Ativan 2mg/ml 1ml) 0.5 mg Q4H PRN IV For Anxiety 10/01/17 08:00 10/08/17 07:59 Metoprolol Tartrate (Lopressor) 5 mg Q6H PRN IVP hr greater than 125 09/30/17 16:30 10/30/17 16:29 Mirtazapine (Remeron) 7.5 mg BEDTIME ORAL 09/30/17 21:00 10/30/17 20:59 10/01/17 21:13 Nicotine (Nicoderm) 1 patch Q24H TDERMAL 10/02/17 15:00 11/01/17 14:59 Olanzapine (ZyPREXA) 10 mg BEDTIME ORAL 09/30/17 21:00 10/30/17 20:59 1/28/18 21:13 Quetiapine Fumarate (SEROquel) 50 mg Q8HR ORAL 09/30/17 22:00 10/30/17 21:59 10/02/17 07:44 Risperidone (RisperDAL) 2 mg QHS ORAL 10/02/17 21:00 11/01/17 20:59 POOL LANDA Oct 02, 2017 13:41
[2017-10-02] MEDS: Depakote 500mg tab ORAL SCH ×2 (14:21→17:02)
[2017-10-02 16:00] VITALS: BP 112/67
--- NOTE | 2017-10-02 18:26 | Cardiology Report ---
APPROVED REPORT EXAM: Two-dimensional and M-mode echocardiogram with Doppler and color Doppler. INDICATION Tachycardia M-Mode DIMENSIONS IVSd1.0 (0.7-1.1cm)Left Atrium (MM)4.5 (1.6-4.0cm) LVDd5.6 (3.5-5.6cm)Aortic Root3.9 (2.0-3.7cm) PWd0.9 (0.7-1.1cm)Aortic Cusp Exc.2.0 (1.5-2.0cm) LVDs4.0 (2.5-4.0cm) PWs1.3 cm Technically difficult study due to poor acoustical windows. Pt moving. Normal left ventricular chamber size, systolic function and wall motion. Left ventricular ejection fraction estimated to be 45-50% to extend visualized. No evidence of left ventricular hypertrophy. No evidence of pericardial or pleural effusion. All other cardiac chamber sizes are within normal limits. Focal aortic valve sclerosis with adequate cusp excursion. Thickened mitral valve leaflets with normal excursion. Mild mitral annulus and aortic root calcification. Pulmonic valve not well visualized. Normal tricuspid valve structure. IVC is normal in size and collapsible with respiration. A color flow and spectral Doppler study was performed and revealed: No aortic regurgitation. No mitral regurgitation. Mitral diastolic function not obtainable due to arrhythmia. Trace tricuspid regurgitation. Tricuspid systolic velocities suggests peak right ventricular systolic pressure of 25 mmHg
[2017-10-02] MEDS: ALPRAZolam 0.25mg tab ORAL PRN (20:19)
[2017-10-02 20:38] VITALS: BP 135/83
--- NOTE | 2017-10-02 20:45 | Cardiology Progress Note ---
Assessment/Plan Assessment/Plan 1. Atrial fibrillation appears to be chronic, not sure whether it is chronic recurrent or permanent. 2. History of substance abuse. 3. History of psychosis and agitation. 4. chest pain 5. ef 45-50% hr is better controlled labs noted tele personally reviewed hr is better tsh lwo will need to exclude hyperthyroids bb and dilt of hr control echo mild decreased ef perfusion imaging tomorrow Subjective Subjective pain i alteral aspect of chest wall tneder to palp also pain in mily left shoudler joint Objective Last 24 Hour Vital Signs Date Time Temp Pulse Resp B/P (MAP) Pulse Ox O2 Delivery O2 Flow Rate FiO2 10/02/17 20:38 98.1 97 18 135/83 98 10/02/17 17:02 78 116/68 10/02/17 16:00 86 10/02/17 16:00 98.2 85 20 112/67 96 Room Air 10/02/17 12:00 78 10/02/17 12:00 97.9 95 20 116/68 96 Room Air 10/02/17 11:50 105 125/76 10/02/17 08:15 95 112/76 10/02/17 08:14 95 10/02/17 08:00 97.2 99 20 113/62 97 Room Air 10/02/17 08:00 83 10/02/17 07:44 95 129/76 10/02/17 04:00 95 10/02/17 00:09 98.7 88 24 129/76 100 10/02/17 00:00 87 10/01/17 21:14 95 138/96 General Appearance: no apparent distress, alert Neck: supple, normal inspection Cardiovascular: irregularly irregular Respiratory/Chest: lungs clear, normal breath sounds Abdomen: normal bowel sounds, non tender, soft Extremities: non-tender, no swelling Intake and Output 10/01/17 10/02/17 19:00 07:00 Intake Total 920 ml Output Total 600 ml Balance 920 ml -600 ml Intake Oral 920 ml Output Urine Total 600 ml # Voids 3 OLIVERGIAN Oct 02, 2017 20:45
--- NOTE | 2017-10-02 22:19 | Consultation ---
History of Present Illness General Date patient seen: Oct 02, 2017 Chief Complaint: Chest Pain Present Illness HPI 57 yo male with history of atrial fibrillation as well as mood disorder and agitation who presented to the hospital because of chest pains and palpitations. the pt has mood lability and is easily agitated. the pt is non compliance. the pt has pain meds seeking behaviour. the pt is illogical and at times wanders o hospital. Allergies: Coded Allergies: No Known Allergies (Verified , 11/08/11) Medication History Scheduled Alprazolam* (Xanax*), 2 MG ORAL TID, (Reported) Aspirin* (Aspirin*), 81 MG ORAL DAILY, (Reported) Atenolol* (Tenormin*), 25 MG ORAL BID, (Reported) Digoxin* (Digoxin*), 125 MCG ORAL DAILY, (Reported) Diltiazem Hcl (Cardizem Cd), 360 MG PO DAILY Lorazepam* (Ativan*), 0.5 MG ORAL THREE TIMES A DAY Metoprolol Succinate* (Toprol Xl*), 100 MG ORAL DAILY Mirtazapine* (Mirtazapine*), 7.5 MG ORAL BEDTIME Olanzapine* (Zyprexa*), 10 MG ORAL BEDTIME Quetiapine Fumarate* (Seroquel*), 50 MG ORAL Q8HR Warfarin Sod (Coumadin), 2 MG IV DAILY Scheduled PRN Acetaminophen With Codeine (T#3) (Tylenol #3 Tab*), 1 TAB ORAL Q8H PRN for For Pain Alprazolam* (Xanax*), 0.25 MG ORAL TID PRN for For Anxiety Alprazolam* (Xanax*), 1 TAB ORAL TID PRN for For Anxiety Hydrocodone Bit/Acetaminophen 5-325* ([place] 5-325*), 1 TAB ORAL Q6H PRN for For Pain Hydrocodone Bit/Acetaminophen 5-325* ([place] 5-325*), 1 TAB ORAL Q4H PRN for For Pain Miscellaneous Medications [Qualitest], (Reported) Patient History History Provided By: Patient, Medical Record, PMD Healthcare decision maker N Resuscitation status Full Code Advanced Directive on File No Review of Systems Psychiatric: Reports: prior hx, anxiety, depressed feelings, emotional problems Physical Exam General Appearance: no apparent distress, alert Neurologic: alert, oriented x 3, responsive, depressed affect Last 24 Hour Vital Signs Date Time Temp Pulse Resp B/P (MAP) Pulse Ox O2 Delivery O2 Flow Rate FiO2 10/02/17 21:00 92 140/68 10/02/17 20:38 98.1 97 18 135/83 98 10/02/17 17:02 78 116/68 10/02/17 16:00 86 10/02/17 16:00 98.2 85 20 112/67 96 Room Air 10/02/17 12:00 78 10/02/17 12:00 97.9 95 20 116/68 96 Room Air 10/02/17 11:50 105 125/76 10/02/17 08:15 95 112/76 10/02/17 08:14 95 10/02/17 08:00 97.2 99 20 113/62 97 Room Air 10/02/17 08:00 83 10/02/17 07:44 95 129/76 10/02/17 04:00 95 10/02/17 00:09 98.7 88 24 129/76 100 10/02/17 00:00 87 Intake and Output 10/01/17 10/02/17 19:00 07:00 Intake Total 920 ml Output Total 600 ml Balance 920 ml -600 ml Intake Oral 920 ml Output Urine Total 600 ml # Voids 3 Height (Feet): 5 Height (Inches): 8.00 Weight (Pounds): 160 Medications Current Medications Medications (Trade) Dose Ordered Sig/Benedicto Route PRN Reason Start Time Stop Time Status Last Admin Dose Admin Acetaminophen/ Hydrocodone Bitart ([place] 5/325) 1 tab Q4H PRN ORAL Moderate Pain (Pain Scale 4-6) 09/30/17 15:15 10/07/17 15:14 10/02/17 12:03 Alprazolam (Xanax) 0.25 mg Q8H PRN ORAL For Anxiety 09/30/17 15:15 10/07/17 15:14 10/02/17 20:19 Atenolol (Tenormin) 25 mg Q12HR ORAL 09/30/17 21:00 10/30/17 20:59 10/02/17 21:00 Digoxin (Lanoxin) 0.125 mg DAILY ORAL 10/01/17 09:00 10/31/17 08:59 10/02/17 08:14 Diltiazem HCl (Cardizem) 60 mg Q6HR ORAL 10/01/17 18:00 10/30/17 16:29 10/02/17 17:02 Divalproex Sodium (Depakote) 500 mg TID ORAL 10/02/17 13:00 11/01/17 12:59 10/02/17 17:02 Haloperidol Lactate (Haldol) 5 mg Q6H PRN IM Agitation 10/01/17 09:00 10/31/17 08:59 10/02/17 11:50 Heparin Sodium (Porcine) (Heparin 5000 units/ml) 5,000 units EVERY 12 HOURS SUBQ 09/30/17 21:00 10/30/17 20:59 10/02/17 21:01 Lorazepam (Ativan 2mg/ml 1ml) 0.5 mg Q4H PRN IV For Anxiety 10/01/17 08:00 10/08/17 07:59 Metoprolol Tartrate (Lopressor) 5 mg Q6H PRN IVP hr greater than 125 09/30/17 16:30 10/30/17 16:29 Mirtazapine (Remeron) 7.5 mg BEDTIME ORAL 09/30/17 21:00 10/30/17 20:59 10/02/17 21:00 Nicotine (Nicoderm) 1 patch Q24H TDERMAL 10/02/17 15:00 11/01/17 14:59 10/02/17 15:09 Olanzapine (ZyPREXA) 10 mg BEDTIME ORAL 09/30/17 21:00 10/30/17 20:59 10/02/17 21:00 Quetiapine Fumarate (SEROquel) 50 mg Q8HR ORAL 09/30/17 22:00 10/30/17 21:59 10/02/17 14:21 Regadenoson (Lexiscan) 0.4 mg ONCE ONCE IV 10/03/17 06:00 10/03/17 06:01 Risperidone (RisperDAL) 2 mg QHS ORAL 10/02/17 21:00 11/01/17 20:59 10/02/17 21:00 Assessment/Plan Status: stable Assessment/Plan mood disorder agitation -start depakote -start Jarocho Mistry M.D. Oct 02, 2017 22:19
[2017-10-03] MEDS: dilTIAZem HCl 60mg tab ORAL SCH ×4 (00:08→18:17)
[2017-10-03 00:37] VITALS: BP 140/80
[2017-10-03 04:07] VITALS: BP 120/65
[2017-10-03] MEDS ORDERED: Lexiscan 0.4mg/5ml syringe IV ONE (06:00)
[2017-10-03 08:00] VITALS: BP 137/73
[2017-10-03] MEDS: Depakote 500mg tab ORAL SCH ×3 (08:40→18:17)
[2017-10-03] MEDS: Norco 5mg/325mg tab ORAL PRN ×3 (08:41→20:27)
[2017-10-03] MEDS: Heparin 5000 units/ml inj SUBQ SCH ×3 (08:42→20:28)
[2017-10-03] MEDS: Digoxin 0.125mg tab ORAL SCH (08:47)
[2017-10-03] MEDS: Atenolol 25mg tab ORAL SCH ×2 (08:47→20:25)
--- NOTE | 2017-10-03 12:38 | Cardiology Progress Note ---
Assessment/Plan Assessment/Plan 1. Atrial fibrillation appears to be chronic, not sure whether it is chronic recurrent or permanent. 2. History of substance abuse. 3. History of psychosis and agitation. 4. chest pain 5. ef 45-50% hr is better controlled labs noted tele personally reviewed hr is better tsh lwo will need to exclude hyperthyroids , ft4 , t3u ordred bb and dilt of hr control echo mild decreased ef perfusion imaging today importance of compliance with med d/w pt [id number] score 0 will leave on ecotrin (no chf no dm no htn no cva no pvd age less than 65 male ) ok to dc if perfusion imagaing neg Subjective Cardiovascular: Reports: chest pain, Denies: lightheadedness Respiratory: Denies: shortness of breath Gastrointestinal/Abdominal: Denies: abdominal pain Genitourinary: Denies: burning Subjective pain i alteral aspect of chest wall tneder to palp also pain in mily left shoudler joint Objective Last 24 Hour Vital Signs Date Time Temp Pulse Resp B/P (MAP) Pulse Ox O2 Delivery O2 Flow Rate FiO2 10/03/17 12:00 89 137/73 10/03/17 08:47 89 10/03/17 08:47 89 137/73 10/03/17 08:00 97.1 89 18 137/73 97 10/03/17 06:10 78 130/68 10/03/17 04:07 97.9 72 18 120/65 97 10/03/17 04:00 72 10/03/17 00:37 97.9 80 19 140/80 96 10/03/17 00:08 98 135/64 10/03/17 00:00 89 10/02/17 21:00 92 140/68 10/02/17 20:38 98.1 97 18 135/83 98 10/02/17 20:00 82 10/02/17 17:02 78 116/68 10/02/17 16:00 86 10/02/17 16:00 98.2 85 20 112/67 96 Room Air General Appearance: alert Neck: supple Cardiovascular: irregularly irregular Respiratory/Chest: lungs clear, normal breath sounds Abdomen: normal bowel sounds, non tender, soft Extremities: no swelling Intake and Output 10/02/17 10/03/17 19:00 07:00 Intake Total 800 ml 840 ml Output Total 800 ml Balance 800 ml 40 ml Intake Oral 800 ml 840 ml Output Urine Total 800 ml # Voids 1 Laboratory Tests Test 10/03/17 05:50 Valproic Acid (Depakene) Level 31 MCG/ML (50-100) L GIAN BOYD Oct 03, 2017 12:38
--- NOTE | 2017-10-03 14:39 | Pulmonology Progress Note ---
Assessment/Plan Problems: (1) ACS (acute coronary syndrome) (2) Atrial fibrillation with RVR (3) Non-compliance (4) Psychosis Assessment/Plan mentally better psych evaluation. d/w dr Bertrand heart rate still high stress test done dc home if negative. Subjective ROS Limited/Unobtainable: No Constitutional: Reports: no symptoms HEENT: Repors: no symptoms Respiratory: Reports: no symptoms Allergies: Coded Allergies: No Known Allergies (Verified , 11/08/11) Objective Last 24 Hour Vital Signs Date Time Temp Pulse Resp B/P (MAP) Pulse Ox O2 Delivery O2 Flow Rate FiO2 10/03/17 12:00 89 137/73 10/03/17 08:47 89 10/03/17 08:47 89 137/73 10/03/17 08:00 97.1 89 18 137/73 97 10/03/17 06:10 78 130/68 10/03/17 04:07 97.9 72 18 120/65 97 10/03/17 04:00 72 10/03/17 00:37 97.9 80 19 140/80 96 10/03/17 00:08 98 135/64 10/03/17 00:00 89 10/02/17 21:00 92 140/68 10/02/17 20:38 98.1 97 18 135/83 98 10/02/17 20:00 82 10/02/17 17:02 78 116/68 10/02/17 16:00 86 10/02/17 16:00 98.2 85 20 112/67 96 Room Air Intake and Output 10/02/17 10/03/17 19:00 07:00 Intake Total 800 ml 840 ml Output Total 800 ml Balance 800 ml 40 ml Intake Oral 800 ml 840 ml Output Urine Total 800 ml # Voids 1 General Appearance: WD/WN HEENT: normocephalic Respiratory/Chest: chest wall non-tender, normal breath sounds Cardiovascular: normal rate Abdomen: normal bowel sounds Genitourinary: normal external genitalia Laboratory Tests 10/03/17 05:50: Free Thyroxine 1.57H, Triiodothyronine (T3) Uptake [Pending], Valproic Acid ( Depakene) Level 31L Current Medications Medications (Trade) Dose Ordered Sig/Benedicto Route PRN Reason Start Time Stop Time Status Last Admin Dose Admin Acetaminophen/ Hydrocodone Bitart ([place] 5/325) 1 tab Q4H PRN ORAL Moderate Pain (Pain Scale 4-6) 09/30/17 15:15 10/07/17 15:14 10/03/17 08:41 Alprazolam (Xanax) 0.25 mg Q8H PRN ORAL For Anxiety 09/30/17 15:15 10/07/17 15:14 10/02/17 20:19 Atenolol (Tenormin) 25 mg Q12HR ORAL 09/30/17 21:00 10/30/17 20:59 10/02/17 21:00 Digoxin (Lanoxin) 0.125 mg DAILY ORAL 10/01/17 09:00 10/31/17 08:59 10/02/17 08:14 Diltiazem HCl (Cardizem) 60 mg Q6HR ORAL 10/01/17 18:00 10/30/17 16:29 10/03/17 06:10 Divalproex Sodium (Depakote) 500 mg TID ORAL 10/02/17 13:00 11/01/17 12:59 10/03/17 12:45 Heparin Sodium (Porcine) (Heparin 5000 units/ml) 5,000 units EVERY 12 HOURS SUBQ 09/30/17 21:00 10/30/17 20:59 10/02/17 21:01 Lorazepam (Ativan 2mg/ml 1ml) 0.5 mg Q4H PRN IV For Anxiety 10/01/17 08:00 10/08/17 07:59 Metoprolol Tartrate (Lopressor) 5 mg Q6H PRN IVP hr greater than 125 09/30/17 16:30 10/30/17 16:29 Nicotine (Nicoderm) 1 patch Q24H TDERMAL 10/02/17 15:00 11/01/17 14:59 10/02/17 15:09 Olanzapine (ZyPREXA) 10 mg BEDTIME ORAL 10/03/17 21:00 11/02/17 20:59 POOL LADNA Oct 03, 2017 14:39
--- NOTE | 2017-10-03 14:58 | Diagnostic Imaging Report ---
Indications: 57-year-old male with chest pain Technique: Single day single isotope protocol utilized. Initially, resting images obtained using IV administration 10.2 millicuries 99M technetium Myoview. Subsequently, patient underwent lexiscan stress testing. See cardiology report for details. During adenosine infusion, IV administration 32 mCi 99 M technetium Myoview. SPECT and planar images obtained. SPECT images gated to 8 phases of the cardiac cycle were also obtained, and reformatted into cine images for evaluation of ejection fraction. Comparison: 10/26/2015 Findings: Per cardiology report, patient experienced no symptoms. Per cardiology report, resting EKG demonstrates . Atrial fibrillation with T-wave inversion in the lateral leads. The presence or absence of ST changes during infusion is not described in the cardiology report. Imaging demonstrates equivocal decreased perfusion in the inferior wall which is probably just an artifact of soft tissue attenuation. This is unchanged on the resting images. Normal left ventricular chamber size. Calculated post stress ejection fraction 54% November the previous exam, findings are unchanged Impression: Nondiagnostic clinical response to pharmacologic stress, per cardiology report Nondiagnostic electrocardiographic response to pharmacologic stress, per cardiology report No imaging findings to suggest ischemia, at level of stress achieved. Calculated post stress ejection fraction 54%
[2017-10-03 16:00] VITALS: BP 112/76
[2017-10-03 20:07] VITALS: BP 140/79
[2017-10-03] MEDS: ALPRAZolam 0.25mg tab ORAL PRN (20:25)
--- NOTE | 2017-10-03 22:34 | General Progress Note ---
Assessment/Plan Status: stable Subjective Date patient seen: Oct 03, 2017 Neurologic/Psychiatric: Reports: anxiety, depressed, emotional problems Allergies: Coded Allergies: No Known Allergies (Verified , 11/08/11) Objective Last 24 Hour Vital Signs Date Time Temp Pulse Resp B/P (MAP) Pulse Ox O2 Delivery O2 Flow Rate FiO2 10/03/17 20:25 80 140/79 10/03/17 20:07 97.7 80 19 140/79 100 Room Air 10/03/17 19:37 107 10/03/17 18:17 92 112/76 10/03/17 16:00 98.1 79 16 112/76 98 10/03/17 16:00 92 10/03/17 12:00 89 137/73 10/03/17 08:47 89 10/03/17 08:47 89 137/73 10/03/17 08:00 97.1 89 18 137/73 97 10/03/17 06:10 78 130/68 10/03/17 04:07 97.9 72 18 120/65 97 10/03/17 04:00 72 10/03/17 00:37 97.9 80 19 140/80 96 10/03/17 00:08 98 135/64 10/03/17 00:00 89 Intake and Output 10/02/17 10/03/17 19:00 07:00 Intake Total 800 ml 840 ml Output Total 800 ml Balance 800 ml 40 ml Intake Oral 800 ml 840 ml Output Urine Total 800 ml # Voids 1 Laboratory Tests 10/03/17 05:50: Free Thyroxine 1.57H, Triiodothyronine (T3) Uptake [Pending], Valproic Acid ( Depakene) Level 31L Height (Feet): 5 Height (Inches): 8.00 Weight (Pounds): 160 General Appearance: no apparent distress, alert Neurologic: alert, oriented x 3, responsive, depressed affect Jarocho Bertrand M.D. Oct 03, 2017 22:34
[2017-10-04] MEDS: dilTIAZem HCl 60mg tab ORAL SCH ×3 (00:03→12:36)
[2017-10-04 00:22] VITALS: BP 137/79
[2017-10-04 04:00] VITALS: BP 132/81
[2017-10-04 08:00] VITALS: BP 120/80
[2017-10-04] MEDS: Heparin 5000 units/ml inj SUBQ SCH (09:00)
[2017-10-04] MEDS: Digoxin 0.125mg tab ORAL SCH (09:16)
[2017-10-04] MEDS: Atenolol 25mg tab ORAL SCH (09:16)
[2017-10-04] MEDS: Depakote 500mg tab ORAL SCH ×2 (09:17→12:36)
[2017-10-04] MEDS: Norco 5mg/325mg tab ORAL PRN (09:17)
[2017-10-04 12:00] VITALS: BP 111/78
[2017-10-04 12:36] VITALS: BP 111/78
--- NOTE | 2017-10-04 15:54 | Pulmonology Progress Note ---
Assessment/Plan Problems: (1) ACS (acute coronary syndrome) (2) Atrial fibrillation with RVR (3) Non-compliance (4) Psychosis Assessment/Plan mentally better heart rate still high stress test done dc home if negative. dc with close outpatient follow up. Subjective ROS Limited/Unobtainable: No Constitutional: Reports: no symptoms HEENT: Repors: no symptoms Allergies: Coded Allergies: No Known Allergies (Verified , 11/08/11) Objective Last 24 Hour Vital Signs Date Time Temp Pulse Resp B/P (MAP) Pulse Ox O2 Delivery O2 Flow Rate FiO2 10/04/17 12:36 88 111/78 10/04/17 12:00 97.3 88 18 111/78 98 Room Air 10/04/17 09:16 74 10/04/17 09:16 74 132/81 10/04/17 08:00 97.1 74 18 120/80 98 Room Air 10/04/17 08:00 96 10/04/17 06:30 74 132/81 10/04/17 04:00 74 10/04/17 04:00 97.5 74 18 132/81 96 Room Air 10/04/17 00:22 98.1 78 18 137/79 98 Room Air 10/04/17 00:03 69 110/64 10/04/17 00:00 98 10/03/17 20:25 80 140/79 10/03/17 20:07 97.7 80 19 140/79 100 Room Air 10/03/17 19:37 107 10/03/17 18:17 92 112/76 10/03/17 16:00 98.1 79 16 112/76 98 10/03/17 16:00 92 Intake and Output 10/03/17 10/04/17 19:00 07:00 Intake Total 1090 ml 360 ml Output Total 2200 ml 450 ml Balance -1110 ml -90 ml Intake Oral 1090 ml 360 ml Output Urine Total 2200 ml 450 ml General Appearance: WD/WN HEENT: normocephalic, atraumatic Cardiovascular: normal peripheral pulses, regular rhythm Abdomen: normal bowel sounds, soft, non tender Extremities: no cyanosis, no clubbing Skin: no lesions Neurologic/Psychiatric: institutional research coordinator II-XII grossly normal POOL LANDA Oct 04, 2017 15:54
--- NOTE | 2017-10-05 15:04 | Discharge Summary ---
Discharge Summary Hospital Course Date of Admission Sep 30, 2017 at 13:42 Date of Discharge Oct 04, 2017 at 13:30 Admitting Diagnosis afib rvr HPI Nate Watts is a 57 year old male who was admitted on Sep 30, 2017 at 13:42 for Atrial Fibrilation/ Rapid Venticular Rate Hospital Course [id number] Discharge Discharge Disposition Patient was discharged to Home (01) Discharge Diagnoses: Linda Borrero NP Oct 05, 2017 15:04
--- NOTE | 2017-10-06 12:54 | Progress Note ---
DATE: 10/04/2017 SUBJECTIVE: The patient is calmer and more cooperative. At times, has episodes of irritability and complaining of not being able to smoke. The patient is illogical and is focusing on discharge. MENTAL STATUS EXAMINATION: The patient is alert and oriented times self, place, and situation he is in. Mood is irritable. Affect is flat. Congruent with mood. Thought process, there is a paucity of thought content. Thought content, no suicidal or homicidal ideations. ASSESSMENT: 1. Mood disorder. 2. Depression. PLAN: 1. The patient will be continued on low-dose of antidepressant. 2. We will continue to follow and readjust the medications. Jarocho Bertrand M.D. DR: QUINTIN JOB#: [id number] CC:
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
== END 2017-10-04 13:30 | disposition home or self-care (01) | DRG 198 ==
LOC: EDBD 12:06 → EMR 12:30 → EDBEDREQ 13:40 → 2E 13:42 → EDBEDREQ 13:46
DX: I24.9 Acute ischemic heart disease, unspecified (principal); F20.9 Schizophrenia, unspecified; I10 Essential (primary) hypertension; I48.2 Chronic atrial fibrillation; F29 Unspecified psychosis not due to a substance or known physiological condition; Z91.19 Patient's noncompliance with other medical treatment and regimen; Z79.01 Long term (current) use of anticoagulants; Z86.73 Personal history of transient ischemic attack (TIA), and cerebral infarction without residual deficits; F19.21 Other psychoactive substance dependence, in remission; Z91.14 Patient's other noncompliance with medication regimen; R07.89 Other chest pain; M25.512 Pain in left shoulder; R45.1 Restlessness and agitation
CPT/HCPCS: 36415; 71045; 78452; 80053; 80061; 80164; 82248; 82550; 82553; 83690; 83880; 84439; 84443; 84480; 84484; 85025; 93005; 93017; 93306; 99285; J2405; J2785; J8499

== ENCOUNTER 2019-03-22 17:18 | Emergency (ER) | payer OTHER ==
[~2019-03-22] VITALS: Ht 188 cm; Wt 102.1 kg
[~2019-03-22 17:18] MED LIST changes: +ATENOLOL25 MG ORAL; -Sodium Chloride 500ML 500 ML IV ONE
[2019-03-22 17:30] VITALS: BP 162/92
--- NOTE | 2019-03-22 17:30 | NUR ---
ED Nurse Note: pt walked in to ED due to non-radiated cp and all over the body pain since this morning around 1000. pt also c/o hernia pain. pt seen by PCP .and referred to ED for further eval. pt seems irritable, guarding and moaning noted. ekg done at the bed side. AAO x4. respirations even and non-labored noted. skin warm to touch. no open wound noted. will wait for the further order
[2019-03-22] MEDS ORDERED: Morphine Sulfate 2mg/ml Inj(IV/IM USE ONLY) IM ONE (18:00)
[2019-03-22 18:07] LABS: ANION GAP 4 mmol/L (5-15); BLOOD UREA NITROGEN 5 mg/dL (7-18); CALCIUM 9.6 MG/DL (8.5-10.1); CARBON DIOXIDE 23 MMOL/L (21-32); CHLORIDE 102 MMOL/L (98-107); CREATININE 0.9 MG/DL (0.55-1.30); POTASSIUM 3.5 MMOL/L (3.5-5.1); SODIUM 129 MMOL/L (136-145)
[2019-03-22 18:19] LABS: ALANINE AMINOTRANSFERASE 11 U/L (12-78); ALBUMIN 4.1 G/DL (3.4-5.0); ALBUMIN/GLOBULIN RATIO 1.1 (1.0-2.7); ALKALINE PHOSPHATASE 75 U/L (46-116); ASPARTATE AMINO TRANSFERASE 33 U/L (15-37); BILIRUBIN,TOTAL 0.8 MG/DL (0.2-1.0); CKMB 1.7 NG/ML (0.0-3.6); CREATINE KINASE 330 U/L (26-308)
[2019-03-22 18:27] LABS: BASOPHILS % (AUTO) 1.2 % (0.0-2.0); EOSINOPHILS % (AUTO) 0.6 % (0.0-3.0); HEMATOCRIT 42.9 % (42.0-52.0); HEMOGLOBIN 14.5 G/DL (14.2-18.0); LYMPHOCYTES % (AUTO) 25.7 % (20.0-45.0); MEAN CORPUSCULAR VOLUME 96 FL (80-99); MONOCYTES % (AUTO) 4.5 % (1.0-10.0); PLATELET COUNT 228 K/UL (150-450); RED BLOOD COUNT 4.48 M/UL (4.70-6.10); RED CELL DISTRIBUTION WIDTH 11.5 % (11.6-14.8); WHITE BLOOD COUNT 6.2 K/UL (4.8-10.8)
[2019-03-22 18:38] LABS: INR 1.1 (0.9-1.1)
--- NOTE | 2019-03-22 19:16 | NUR ---
HAND-OFF: Report given to NEHA Segura.
--- NOTE | 2019-03-22 19:51 | Emergency Room Report ---
History of Present Illness General Chief Complaint: Chest Pain Source: Patient Present Illness HPI Patient presents with complaints of midsternal chest pain Reports that the pain started 2 days ago intermittent patient has history of atrial fibrillation Denies any shortness of breath denies any vomiting or diarrhea patient also complains of right-sided inguinal hernia Discomfort Reports that that has been there for several years denies any acute fall or trauma The chest discomfort does not change with any position or exertion Allergies: Coded Allergies: No Known Allergies (Verified , 11/08/11) Patient History Past Medical History: see triage record Pertinent Family History: none Reviewed Nursing Documentation: PMH: Agreed; PSxH: Agreed Nursing Documentation-PMH Past Medical History: No History, Except For Hx Cardiac Problems: Yes - MA Hx Hypertension: Yes Hx Pacemaker: No Hx Asthma: No Hx COPD: No Hx Diabetes: No Hx Cancer: No Hx Gastrointestinal Problems: No - Hernia Hx Dialysis: No History Of Psychiatric Problem: Yes - Anxiety Hx Neurological Problems: No Hx Cerebrovascular Accident: Yes Hx Seizures: Yes Review of Systems All Other Systems: negative except mentioned in HPI Physical Exam Vital Signs Date Time Temp Pulse Resp B/P (MAP) Pulse Ox O2 Delivery O2 Flow Rate FiO2 03/22/19 17:23 98.2 95 20 180/103 (128) 99 Room Air Sp02 EP Interpretation: reviewed, normal General Appearance: well appearing, no apparent distress Head: normocephalic, atraumatic Eyes: bilateral eye PERRL, bilateral eye EOMI ENT: hearing grossly normal, normal pharynx, TMs + canals normal, uvula midline Neck: full range of motion, supple, no meningismus, no bony tend Respiratory: lungs clear, normal breath sounds, no rhonchi, no respiratory distress, no retraction, no accessory muscle use Cardiovascular #1: normal peripheral pulses, no edema, no gallop, no JVD, no murmur, irregularly irregular Gastrointestinal: normal bowel sounds, non tender, no organomegaly, non- distended, no guarding, no pulsatile mass, no rebound, other - Right-sided inguinal hernia soft Genitourinary: no CVA tenderness Musculoskeletal: normal inspection Neurologic: oriented x3, responsive, therapist's assistant III-XII nml as tested, motor strength/ tone normal, sensory intact Psychiatric: mood/affect normal Skin: no rash Lymphatic: normal inspection, no adenopathy Medical Decision Making Diagnostic Impression: Primary Impression: afib with RVR Additional Impression: Chest pain ER Course Patient is a fairly complex patient with multiple differential to consideration including but not limited to cardiac cardiopulmonary and vascular emergencies Patient's heart rate is well controlled at this time cardiac enzymes are within normal limits I did not feel further imaging of the abdominal area for the hernia was emergently required And patient stabilized for further inpatient care Labs Test 03/22/19 17:15 03/22/19 18:20 White Blood Count 6.2 K/UL (4.8-10.8) Red Blood Count 4.48 M/UL (4.70-6.10) Hemoglobin 14.5 G/DL (14.2-18.0) Hematocrit 42.9 % (42.0-52.0) Mean Corpuscular Volume 96 FL (80-99) Mean Corpuscular Hemoglobin 32.3 PG (27.0-31.0) Mean Corpuscular Hemoglobin Concent 33.7 G/DL (32.0-36.0) Red Cell Distribution Width 11.5 % (11.6-14.8) Platelet Count 228 K/UL (150-450) Mean Platelet Volume 5.6 FL (6.5-10.1) Neutrophils (%) (Auto) 68.0 % (45.0-75.0) Lymphocytes (%) (Auto) 25.7 % (20.0-45.0) Monocytes (%) (Auto) 4.5 % (1.0-10.0) Eosinophils (%) (Auto) 0.6 % (0.0-3.0) Basophils (%) (Auto) 1.2 % (0.0-2.0) Sodium Level 129 MMOL/L (136-145) Potassium Level 3.5 MMOL/L (3.5-5.1) Chloride Level 102 MMOL/L (98-107) Carbon Dioxide Level 23 MMOL/L (21-32) Anion Gap 4 mmol/L (5-15) Blood Urea Nitrogen 5 mg/dL (7-18) Creatinine 0.9 MG/DL (0.55-1.30) Estimat Glomerular Filtration Rate > 60 mL/min (>60) Glucose Level 134 MG/DL (74-106) Calcium Level 9.6 MG/DL (8.5-10.1) Total Bilirubin 0.8 MG/DL (0.2-1.0) Aspartate Amino Transf (AST/SGOT) 33 U/L (15-37) Alanine Aminotransferase (ALT/SGPT) 11 U/L (12-78) Alkaline Phosphatase 75 U/L (46-116) Total Creatine Kinase 330 U/L (26-308) Creatine Kinase MB 1.7 NG/ML (0.0-3.6) Creatine Kinase MB Relative Index 0.5 Troponin I 0.000 ng/mL (0.000-0.056) Pro-B-Type Natriuretic Peptide 1176 pg/mL (0-125) Total Protein 7.8 G/DL (6.4-8.2) Albumin 4.1 G/DL (3.4-5.0) Globulin 3.7 g/dL Albumin/Globulin Ratio 1.1 (1.0-2.7) Lipase 76 U/L (73-393) Prothrombin Time 12.0 SEC (9.30-11.50) Prothromb Time International Ratio 1.1 (0.9-1.1) Activated Partial Thromboplast Time 30 SEC (23-33) EKG Diagnostic Results Rate: normal Rhythm: other ST Segments: no acute changes - afib Rhythm Strip Diag. Results EP Interpretation: yes Rate: 80 Rhythm: no PVC's, no ectopy, other - afib Chest X-Ray Diagnostic Results Chest X-Ray Diagnostic Results : Chest X-Ray Ordered: Yes # of Views/Limited/Complete: 1 View Indication: Chest Pain EP Interpretation: Yes Interpretation: no consolidation, no effusion, no pneumothorax Impression: No acute disease Electronically Signed by: Karolina Juarez DO Last Vital Signs Date Time Temp Pulse Resp B/P (MAP) Pulse Ox O2 Delivery O2 Flow Rate FiO2 03/22/19 17:30 98.0 93 20 162/92 99 Room Air Status: improved Disposition: XFER SHT-TRM HOSP Condition: Improved Referrals: [facility] (PCP) Karolina Juarez DO Mar 22, 2019 19:51
[2019-03-22 22:10] VITALS: BP 162/92
--- NOTE | 2019-03-22 22:10 | NUR ---
ER DISCHARGE NOTE: Patient is cleared to be discharged per ERMD, pt is aox4, on room air, with stable vital signs. pt was given dc and prescription instructions, pt was able to verbalize understanding, pt id band removed. PT was transported via [facility]. pt took all belongings.
--- NOTE | 2019-03-23 11:10 | Diagnostic Imaging Report ---
Indication: Chest pain Comparison: 09/30/2017 A single view chest radiograph was obtained. Findings: No definite infiltrate or pulmonary vascular congestion identified. The heart is enlarged. The aorta is mildly enlarged consistent with atherosclerotic vascular disease. The bones are osteopenic. Impression: No acute disease
--- NOTE | 2019-03-24 13:07 | Cardiology Report ---
APPROVED REPORT EKG Measurement Heart [id number] Atrial fibrillation Left axis deviation Incomplete right bundle branch block T wave abnormality, consider inferior ischemia Prolonged QT Abnormal ECG
== END 2019-03-22 22:10 | disposition short-term general hospital (02) ==
LOC: EMR 18:08
DX: I48.2 Chronic atrial fibrillation (principal); R07.9 Chest pain, unspecified; I25.2 Old myocardial infarction; I10 Essential (primary) hypertension; F41.9 Anxiety disorder, unspecified; Z86.73 Personal history of transient ischemic attack (TIA), and cerebral infarction without residual deficits; G40.909 Epilepsy, unspecified, not intractable, without status epilepticus; K40.90 Unilateral inguinal hernia, without obstruction or gangrene, not specified as recurrent
CPT/HCPCS: 36415; 71045; 80053; 82550; 82553; 83690; 83880; 84484; 85025; 85610; 85730; 93005; 96372; 96374; 99284; J1940; J2270

== ENCOUNTER 2019-03-30 17:56 | Emergency (ER) | payer OTHER ==
[~2019-03-30] VITALS: Ht 190.5 cm; Wt 102.1 kg
[2019-03-30 18:28] VITALS: BP 172/105
--- NOTE | 2019-03-30 18:29 | NUR ---
ED Nurse Note: JOSEPH WHELAN 69 PT FROM HOME C/O CHEST PAIN BI-LAT LEG PAIN AND ANXIETY. ERMD EVAL DONE LINE ESTABLISHED PT ON MONITOR .
[2019-03-30] MEDS: Metoprolol 5mg/5ml Inj IVP SCH ×2 (18:40→20:21)
--- NOTE | 2019-03-30 19:03 | Diagnostic Imaging Report ---
EXAM: XR Chest, 1 View CLINICAL HISTORY: CP TECHNIQUE: Frontal view of the chest. COMPARISON: No relevant prior studies available. FINDINGS: Lungs: No consolidation. Pleural space: Unremarkable. No pneumothorax. Heart: Unremarkable. No cardiomegaly. Mediastinum: Unremarkable. Bones/joints: No acute fracture. IMPRESSION: No acute cardiopulmonary disease.
--- NOTE | 2019-03-30 19:12 | NUR ---
HAND-OFF: Report given to RIOS SOLOMON.
--- NOTE | 2019-03-30 19:14 | NUR ---
HAND-OFF: Report given to RIOS SOLOMON.
[2019-03-30 19:23] LABS: INR 1.4 (0.9-1.1)
[2019-03-30 19:24] LABS: ANION GAP 19 mmol/L (5-15); BLOOD UREA NITROGEN 28 mg/dL (7-18); CALCIUM 10.5 MG/DL (8.5-10.1); CARBON DIOXIDE 18 MMOL/L (21-32); CHLORIDE 97 MMOL/L (98-107); CREATININE 1.8 MG/DL (0.55-1.30); POTASSIUM 4.4 MMOL/L (3.5-5.1); SODIUM 134 MMOL/L (136-145)
[2019-03-30 19:33] LABS: BASOPHILS % (AUTO) 1.1 % (0.0-2.0); HEMATOCRIT 55.2 % (42.0-52.0); LYMPHOCYTES % (AUTO) 13.2 % (20.0-45.0); MEAN CORPUSCULAR VOLUME 94 FL (80-99); NEUTROPHILS % (AUTO) 78.7 % (45.0-75.0); PLATELET COUNT 346 K/UL (150-450); RED BLOOD COUNT 5.89 M/UL (4.70-6.10); RED CELL DISTRIBUTION WIDTH 11.1 % (11.6-14.8); WHITE BLOOD COUNT 12.5 K/UL (4.8-10.8)
[2019-03-30 19:42] LABS: ALANINE AMINOTRANSFERASE 12 U/L (12-78); ALBUMIN 5.3 G/DL (3.4-5.0); ALBUMIN/GLOBULIN RATIO 1.5 (1.0-2.7); ALKALINE PHOSPHATASE 77 U/L (46-116); ASPARTATE AMINO TRANSFERASE 33 U/L (15-37); BILIRUBIN,TOTAL 1.2 MG/DL (0.2-1.0); CKMB 3.4 NG/ML (0.0-3.6); CREATINE KINASE 676 U/L (26-308)
--- NOTE | 2019-03-30 19:45 | NUR ---
ER Nurse Note: Pt calm, cooperative. Was endorsed PRN Lopressor was given d/t elevated BP; will montior and give second round when need. Askin for anxiety meds; will notify ERMD. LT hand IV; patent and infusing NS. All safety measures met; will continue to montior.
[2019-03-30 19:46] LABS: BILIRUBIN,DIRECT 0.1 MG/DL (0.0-0.3)
[2019-03-30] MEDS ORDERED: LORazepam Inj 2mg/ml 1ml IV ONE (20:30)
--- NOTE | 2019-03-30 20:32 | NUR ---
[facility] is here now.
--- NOTE | 2019-03-30 20:38 | Emergency Room Report ---
History of Present Illness General Chief Complaint: Chest Pain Source: Patient, Medical Record Present Illness HPI 58-year-old male presents ED for evaluation. Brought in by EMS from home complaining of chest pain x1 day. Sharp, left-sided, 8 out of 10, nonradiating. Tachycardic to the 160s. History of A. fib. States he is compliant with his medications. Denies alcohol or drug use. No other aggravating relieving factors. Denies any other associated symptoms Allergies: Coded Allergies: No Known Allergies (Verified , 11/08/11) Patient History Past Medical History: HTN, IN, AFib, CVA/TIA, seizures Past Surgical History: none Pertinent Family History: none Social History: Denies: smoking, alcohol use, drug use Immunizations: UTD Reviewed Nursing Documentation: PMH: Agreed; PSxH: Agreed Nursing Documentation-PMH Past Medical History: No History, Except For Hx Cardiac Problems: Yes - IN Hx Hypertension: Yes Hx Pacemaker: No Hx Asthma: No Hx COPD: No Hx Diabetes: No Hx Cancer: No Hx Gastrointestinal Problems: No - Hernia Hx Dialysis: No Hx Neurological Problems: No Hx Cerebrovascular Accident: Yes Hx Seizures: Yes Review of Systems All Other Systems: negative except mentioned in HPI Physical Exam Vital Signs Date Time Temp Pulse Resp B/P (MAP) Pulse Ox O2 Delivery O2 Flow Rate FiO2 03/30/19 17:56 98.1 148 20 172/105 (127) 98 Room Air Sp02 EP Interpretation: reviewed, normal General Appearance: no apparent distress, alert, GCS 15, non-toxic Head: normocephalic, atraumatic Eyes: bilateral eye normal inspection, bilateral eye PERRL ENT: hearing grossly normal, normal pharynx, no angioedema, normal voice Neck: full range of motion, supple/symm/no masses Respiratory: chest non-tender, lungs clear, normal breath sounds, speaking full sentences Cardiovascular #1: no edema, tachycardia Cardiovascular #2: 2+ carotid (R), 2+ carotid (L), 2+ radial (R), 2+ radial (L) , 2+ dorsalis pedis (R), 2+ dorsalis pedis (L) Gastrointestinal: normal bowel sounds, non tender, soft, non-distended, no guarding, no rebound Rectal: deferred Genitourinary: normal inspection, no CVA tenderness Musculoskeletal: back normal, gait/station normal, normal range of motion, non- tender Neurologic: alert, oriented x3, responsive, motor strength/tone normal, sensory intact, speech normal Psychiatric: judgement/insight normal, memory normal, no suicidal/homicidal ideation, anxious Reflexes: 3+ bicep (R), 3+ bicep (L), 3+ tricep (R), 3+ tricep (L), 3+ knee (R) , 3+ knee (L) Lymphatic: no adenopathy Procedures Critical Care Time Critical Care Time i. I feel this is a highly complex case requiring extensive working including EKG/Rhythm strip, Xray/CT/US, Blood/urine lab work, repeat exams while in ED, and administration of strong opiates/narcotics for pain control, admission to hospital or close patient follow up. Total time: 30 min bedside evaluation and treatment excludes procedures (EKG). Reason for critical care: afib with RVR Possible complications: hypotension, hypertension, IN, shock, arrhythmias, metabolic acidosis, end organ damage, respiratory failure. Interventions: labs, IVFS, EKG, CXR, lopressor IV Course: Presenting with chest pain. History of A. fib. Tachycardic to the 160s. Given Lopressor x2 cardioversion achieved. Renal insufficiency noted. Troponin negative. given Ativan Consultations: nursing staff, EMS, family Performed by: Dr Zimmer Tolerated well condition = serious j. because of unstable vital signs this patient had a condition that could potentially threaten life or limb. I feel this is a critical patient who required my full attention while patient was considered critical. Total Critical Care Time excluding procedures was greater than 30 minutes Medical Decision Making Diagnostic Impression: Primary Impression: Atrial fibrillation with RVR Additional Impression: Renal insufficiency ER Course Hospital Course 58 yo M presents to ED c/o chest pain. tachycardia Differential diagnoses include: IN/unstable angina, contusion, muscle strain, PTX, rib fracture Clinical course Patient placed on stretcher. on nurse monitoring which shows A. fib RVR. After initial history and physical I ordered Lopressor IV , labs, EKG, chest x-ray labs reviewed-no leukocytosis, hemoglobin/hematocrit stable, BUN/creatinine elevated, troponin negative EKGA. fib with RVR no acute ischemic changes interpreted by me Chest x-ray-no acute process patient cardioverted after Lopressor x2 with Ativan. Because of insurance patient will be transferred I. I feel this is a highly complex case requiring extensive working including EKG/Rhythm strip, Xray/CT/US, Blood/urine lab work, repeat exams while in ED, and administration of strong opiates/narcotics for pain control, admission to hospital or close patient follow up. Diagnosis -afib with RVR, renal insuffiency Transferred in serious condition Labs Test 03/30/19 18:40 White Blood Count 12.5 K/UL (4.8-10.8) Red Blood Count 5.89 M/UL (4.70-6.10) Hemoglobin 18.0 G/DL (14.2-18.0) Hematocrit 55.2 % (42.0-52.0) Mean Corpuscular Volume 94 FL (80-99) Mean Corpuscular Hemoglobin 31.4 PG (27.0-31.0) Mean Corpuscular Hemoglobin Concent 33.5 G/DL (32.0-36.0) Red Cell Distribution Width 11.1 % (11.6-14.8) Platelet Count 346 K/UL (150-450) Mean Platelet Volume 5.7 FL (6.5-10.1) Neutrophils (%) (Auto) 78.7 % (45.0-75.0) Lymphocytes (%) (Auto) 13.2 % (20.0-45.0) Monocytes (%) (Auto) 7.0 % (1.0-10.0) Eosinophils (%) (Auto) 0.0 % (0.0-3.0) Basophils (%) (Auto) 1.1 % (0.0-2.0) Prothrombin Time 14.7 SEC (9.30-11.50) Prothromb Time International Ratio 1.4 (0.9-1.1) Activated Partial Thromboplast Time 29 SEC (23-33) Sodium Level 134 MMOL/L (136-145) Potassium Level 4.4 MMOL/L (3.5-5.1) Chloride Level 97 MMOL/L (98-107) Carbon Dioxide Level 18 MMOL/L (21-32) Anion Gap 19 mmol/L (5-15) Blood Urea Nitrogen 28 mg/dL (7-18) Creatinine 1.8 MG/DL (0.55-1.30) Estimat Glomerular Filtration Rate 47.4 mL/min (>60) Glucose Level 138 MG/DL (74-106) Calcium Level 10.5 MG/DL (8.5-10.1) Total Bilirubin 1.2 MG/DL (0.2-1.0) Direct Bilirubin 0.1 MG/DL (0.0-0.3) Aspartate Amino Transf (AST/SGOT) 33 U/L (15-37) Alanine Aminotransferase (ALT/SGPT) 12 U/L (12-78) Alkaline Phosphatase 77 U/L (46-116) Total Creatine Kinase 676 U/L (26-308) Creatine Kinase MB 3.4 NG/ML (0.0-3.6) Creatine Kinase MB Relative Index 0.5 Troponin I 0.028 ng/mL (0.000-0.056) Pro-B-Type Natriuretic Peptide 170 pg/mL (0-125) Total Protein 8.9 G/DL (6.4-8.2) Albumin 5.3 G/DL (3.4-5.0) Globulin 3.6 g/dL Albumin/Globulin Ratio 1.5 (1.0-2.7) Digoxin Level < 0.2 NG/ML (0.5-2.0) EKG Diagnostic Results Rate: tachycardiac Rhythm: other - afib with RVR ST Segments: no acute changes ASA given to the pt in ED: No - on coumadin' Rhythm Strip Diag. Results EP Interpretation: yes Rhythm: no PVC's, no ectopy Chest X-Ray Diagnostic Results Chest X-Ray Diagnostic Results : Chest X-Ray Ordered: Yes # of Views/Limited/Complete: 1 View Indication: Chest Pain EP Interpretation: Yes Interpretation: no consolidation, no effusion, no pneumothorax, no acute cardiopulmonary disease Impression: No acute disease Electronically Signed by: Electronically signed by Mario Zimmer MD Last Vital Signs Date Time Temp Pulse Resp B/P (MAP) Pulse Ox O2 Delivery O2 Flow Rate FiO2 03/30/19 20:21 119 171/116 03/30/19 19:13 20 Room Air 03/30/19 18:28 98.1 98 Status: improved Disposition: XFER SHT-TRM HOSP Condition: Serious Referrals: [facility] (PCP) Mario Zimmer MD Mar 30, 2019 20:38
[2019-03-30 20:45] VITALS: BP 139/99
--- NOTE | 2019-03-30 20:45 | NUR ---
ER Nurse Note: Report given to NEHA Giron at [facility] for continuity of care. Pt a&ox4, VSS, RA, no signs of acute distress. All meds given per ERMD orders. Skin intact, left with all belongings.
== END 2019-03-30 20:45 | disposition short-term general hospital (02) ==
LOC: EDUNIT# 17:56 → EDBD 17:56 → EMR 18:50
DX: I48.2 Chronic atrial fibrillation (principal); N28.9 Disorder of kidney and ureter, unspecified; I10 Essential (primary) hypertension; I25.2 Old myocardial infarction; Z86.73 Personal history of transient ischemic attack (TIA), and cerebral infarction without residual deficits; G40.909 Epilepsy, unspecified, not intractable, without status epilepticus
CPT/HCPCS: 71045; 80053; 80162; 82248; 82550; 82553; 83880; 84484; 85025; 85610; 85730; 93005; 96361; 96365; 96375; 99291

== ENCOUNTER 2019-05-21 23:33 | Emergency (ER) | payer OTHER ==
[~2019-05-21] VITALS: Ht 185.4 cm; Wt 81.6 kg
[2019-05-21 23:45] VITALS: BP 139/92
[2019-05-21] MEDS ORDERED: Aspirin Baby 81mg ORAL ONE (23:45)
--- NOTE | 2019-05-21 23:45 | NUR ---
ED Nurse Note: pt samir stout via gurney with c/o cp for the last 2 dats. asa 325mg and 2 spray of nitro was given by paramedics with no relief. VSS pt is ambulatory and alert x4
--- NOTE | 2019-05-21 23:51 | Emergency Room Report ---
History of Present Illness General Chief Complaint: Chest Pain Present Illness HPI Disclaimer: Please note that this report is being documented using DRAGON technology. This can lead to erroneous entry secondary to incorrect interpretation by the dictating instrument. HPI: 58-year-old male with a history of atrial fibrillation on Eliquis presents for evaluation of chest pain. Symptoms began this afternoon approximately 3 PM while the patient was at rest. He describes a stabbing left-sided chest pain rating to the left shoulder. Not affected by exertion or relieved by rest. States is similar to a prior admissions for chest pain. Nuclear stress test in the past have not shown any inducible ischemia. He patient also notes a recent electrical cardioversion for rapid atrial fibrillation at [facility] 1 month ago when he was started on Eliquis. He has been compliant with his medications. He also notes feeling anxious and stating that he ran out of his Ativan and Xanax. He has a PMD appointment tomorrow to refill his medications. Denies shortness of breath, wheezing, cough, fever, abdominal pain , vomiting, diarrhea or other symptoms at this time PMH: Anxiety, substance abuse in the past, atrial fibrillation PSH: See chart Allergies: None listed Social Hx: Former substance abuse, denies current drug or alcohol abuse Allergies: Coded Allergies: No Known Allergies (Verified , 11/08/11) Nursing Documentation-PMH Hx Cardiac Problems: Yes - RI Hx Hypertension: Yes Hx Pacemaker: No Hx Asthma: No Hx COPD: No Hx Diabetes: No Hx Cancer: No Hx Gastrointestinal Problems: No - Hernia Hx Dialysis: No Hx Neurological Problems: No Hx Cerebrovascular Accident: Yes Hx Seizures: Yes Review of Systems All Other Systems: negative except mentioned in HPI Physical Exam Vital Signs Date Time Temp Pulse Resp B/P (MAP) Pulse Ox O2 Delivery O2 Flow Rate FiO2 05/21/19 23:36 98.1 62 18 143/92 (109) 98 Room Air General: Awake and alert, no acute distress HEENT: NC/AT. EOMI. PERRLA. Moist mucous membranes Neck: Supple, trachea midline Chest Wall: Tender to palpation over the sternum and left chest wall. No deformity. No crepitus. Cardiovascular: Irregularly irregular rhythm, normal rate. S1 and S2 normal. No murmur appreciated Resp: Normal work of breathing. No cough, wheezing or crackles appreciated Abdomen: Abdomen is soft, nondistended. Nontender Skin: Intact. No abrasions, laceration or rash over the exposed skin MSK: Normal tone and bulk. Moving all extremities. No obvious deformity. Neuro: Awake and alert. Mentating appropriately. Medical Decision Making Diagnostic Impression: Primary Impression: Atrial fibrillation with normal ventricular rate Additional Impression: Chest pain ER Course 58-year-old male with history of atrial fibrillation on Eliquis presents for evaluation of chest pain beginning at rest this afternoon. Vital signs are stable, patient has reproducible chest wall tenderness and his history of chest pain is somewhat atypical however differential includes is not limited to ACS, angina, atrial fibrillation, electrolyte abnormality, anxiety, bronchitis, pneumonia, pneumothorax, musculoskeletal chest wall pain. Will start cardiac work-up, give aspirin, sublingual nitroglycerin and Ativan. Will obtain chest x -ray, EKG and labs. Disposition dependent on results Laboratory Tests Test 05/21/19 23:45 05/22/19 03:00 White Blood Count 5.0 K/UL (4.8-10.8) Red Blood Count 3.82 M/UL (4.70-6.10) L Hemoglobin 12.2 G/DL (14.2-18.0) L Hematocrit 36.0 % (42.0-52.0) L Mean Corpuscular Volume 94 FL (80-99) Mean Corpuscular Hemoglobin 31.9 PG (27.0-31.0) H Mean Corpuscular Hemoglobin Concent 33.8 G/DL (32.0-36.0) Red Cell Distribution Width 12.3 % (11.6-14.8) Platelet Count 257 K/UL (150-450) Mean Platelet Volume 5.4 FL (6.5-10.1) L Neutrophils (%) (Auto) 52.4 % (45.0-75.0) Lymphocytes (%) (Auto) 38.0 % (20.0-45.0) Monocytes (%) (Auto) 6.3 % (1.0-10.0) Eosinophils (%) (Auto) 2.3 % (0.0-3.0) Basophils (%) (Auto) 1.0 % (0.0-2.0) Sodium Level 140 MMOL/L (136-145) Potassium Level 3.7 MMOL/L (3.5-5.1) Chloride Level 106 MMOL/L (98-107) Carbon Dioxide Level 26 MMOL/L (21-32) Anion Gap 8 mmol/L (5-15) Blood Urea Nitrogen 4 mg/dL (7-18) L Creatinine 1.0 MG/DL (0.55-1.30) Estimate Glomerular Filtration Rate > 60 mL/min (>60) Glucose Level 123 MG/DL (74-106) H Calcium Level 8.7 MG/DL (8.5-10.1) Total Bilirubin 0.3 MG/DL (0.2-1.0) Aspartate Amino Transferase (AST) 10 U/L (15-37) L Alanine Aminotransferase (ALT) 10 U/L (12-78) L Alkaline Phosphatase 72 U/L (46-116) Total Creatine Kinase 142 U/L (26-308) Creatine Kinase MB 0.9 NG/ML (0.0-3.6) Creatine Kinase MB Relative Index 0.6 Troponin I 0.019 ng/mL (0.000-0.056) 0.002 ng/mL (0.000-0.056) Total Protein 6.3 G/DL (6.4-8.2) L Albumin 3.3 G/DL (3.4-5.0) L Globulin 3.0 g/dL Albumin/Globulin Ratio 1.1 (1.0-2.7) EKG Diagnostic Results EKG Time: 23:55 Rate: normal Rhythm: other - Irregularly irregular ST Segments: no acute changes Other Impression Irregularly irregular rhythm consistent with atrial fibrillation, normal rate, left axis deviation Rhythm Strip Diag. Results Rhythm Strip Time: 23:55 EP Interpretation: yes Rate: 90s Rhythm: other - Irregularly irregular rhythm consistent with atrial fibrillation Other Impression Atrial fibrillation, rate controlled Chest X-Ray Diagnostic Results Chest X-Ray Diagnostic Results : Chest X-Ray Ordered: Yes # of Views/Limited/Complete: 1 View Indication: Chest Pain EP Interpretation: Yes Interpretation: no consolidation, no effusion, no pneumothorax, no acute cardiopulmonary disease Impression: No acute disease Electronically Signed by: Electronically signed by Dr. Blake Nicole Reevaluation Time: 03:45 Last Vital Signs Date Time Temp Pulse Resp B/P (MAP) Pulse Ox O2 Delivery O2 Flow Rate FiO2 05/21/19 23:36 98.1 62 18 143/92 (109) 98 Room Air Reevaluation Impression EKG shows atrial fibrillation with a left axis deviation and normal rates. Compared to the patient's prior EKGs the morphology is largely unchanged though the rate is improved as of opposed to his previous 2 visits. Compared to his visit on 03/22/2019 his rate and morphology are unchanged. Labs have returned largely within normal limits. Troponin is negative x2. The patient has been sleeping comfortably since receiving his Ativan on arrival. His chest pain appears very atypical and similar to prior hospital visits and chest pain is now resolved. Most recent nuclear stress test in 2018 showed no inducible ischemia. He has an appointment with his PMD this afternoon that have been scheduled after his previous admission for atrial fibrillation now status post cardioversion. He states he has been compliant with his anticoagulation medication has not missed any doses. Believe the patient is safe and appropriate for outpatient follow-up. Discussed reasons to return to the emergency department with patient as well as emphasized the need for follow-up with his PMD this afternoon. He understands and agrees with this treatment plan will be discharged home Disposition: HOME, SELF-CARE Condition: Improved Blake Nicole MD May 21, 2019 23:51
[2019-05-22] MEDS ORDERED: LORazepam Inj 2mg/ml 1ml IV ONE
[2019-05-22] MEDS ORDERED: LORazepam Inj 2mg/ml 1ml IV SCH
[2019-05-22 00:03] LABS: EOSINOPHILS % (AUTO) 2.3 % (0.0-3.0); HEMOGLOBIN 12.2 G/DL (14.2-18.0); MEAN CORPUSCULAR VOLUME 94 FL (80-99); MONOCYTES % (AUTO) 6.3 % (1.0-10.0); NEUTROPHILS % (AUTO) 52.4 % (45.0-75.0); PLATELET COUNT 257 K/UL (150-450); RED BLOOD COUNT 3.82 M/UL (4.70-6.10); RED CELL DISTRIBUTION WIDTH 12.3 % (11.6-14.8)
[2019-05-22 00:16] LABS: ANION GAP 8 mmol/L (5-15); BLOOD UREA NITROGEN 4 mg/dL (7-18); CALCIUM 8.7 MG/DL (8.5-10.1); CARBON DIOXIDE 26 MMOL/L (21-32); CHLORIDE 106 MMOL/L (98-107); POTASSIUM 3.7 MMOL/L (3.5-5.1); SODIUM 140 MMOL/L (136-145)
[2019-05-22 00:29] LABS: ALANINE AMINOTRANSFERASE 10 U/L (12-78); ALBUMIN 3.3 G/DL (3.4-5.0); ALBUMIN/GLOBULIN RATIO 1.1 (1.0-2.7); ALKALINE PHOSPHATASE 72 U/L (46-116); ASPARTATE AMINO TRANSFERASE 10 U/L (15-37); BILIRUBIN,TOTAL 0.3 MG/DL (0.2-1.0); CKMB 0.9 NG/ML (0.0-3.6); CREATINE KINASE 142 U/L (26-308)
[2019-05-22 00:30] VITALS: BP 133/88
[2019-05-22] MEDS ORDERED: Nitroglycerin Subl 0.4mg tab SL PRN (00:45)
[2019-05-22 02:49] VITALS: BP 146/84
--- NOTE | 2019-05-22 02:58 | NUR ---
ED Nurse Note: second lincoln sent to lab
[2019-05-22 05:45] VITALS: BP 148/86
--- NOTE | 2019-05-22 05:45 | NUR ---
ER DISCHARGE NOTE: Patient is cleared to be discharged per ERMD, pt is aox4, on room air, with stable vital signs. pt was given dc and instructions, pt was able to verbalize understanding, pt id band and iv site removed without complications. pt is able to ambulate with steady gait. pt took all belongings.
--- NOTE | 2019-05-22 11:10 | Diagnostic Imaging Report ---
Indication: Chest pain Technique: XRAY Chest 1v Comparison: 03/30/2019 Findings: Apparent cardiomegaly likely exaggerated due to AP technique and low lung volumes. Mediastinal contours are sharp. There are atherosclerotic vascular calcifications. There is no definite focal airspace consolidation, pleural effusion or pneumothorax. No radiographic evidence of pulmonary edema. No acute osseous abnormality. IMPRESSION: Limited exam with low lung volumes. Apparent cardiomegaly likely exaggerated due to AP technique and low lung volumes. PA and lateral views can be obtained for more reliable assessment of heart size as clinically indicated. No focal airspace consolidation, pleural effusion, pneumothorax or radiographic evidence of pulmonary edema. Atherosclerotic disease.
== END 2019-05-22 05:45 | disposition home or self-care (01) ==
LOC: EDBD 23:33 → EMR 23:52
DX: R07.9 Chest pain, unspecified (principal); I48.91 Unspecified atrial fibrillation; I25.2 Old myocardial infarction; I10 Essential (primary) hypertension; Z86.73 Personal history of transient ischemic attack (TIA), and cerebral infarction without residual deficits; F41.9 Anxiety disorder, unspecified; Z79.01 Long term (current) use of anticoagulants
CPT/HCPCS: 36415; 71045; 80053; 82550; 82553; 84484; 85025; 93005; 96374; Z7502; 99284